=== PATIENT | female | born 1950 | race Caucasian/White ===

== ENCOUNTER → 2017-07-06 | Outpatient (CLI) | payer MEDICARE, BC ==
--- NOTE | 2017-07-06 15:57 | US ---
EXAMINATION TYPE: US carotid duplex BILAT DATE OF EXAM: 07/06/2017 COMPARISON: NONE CLINICAL HISTORY: Edema R60.9, R42 Dizziness. EXAM MEASUREMENTS: RIGHT: Peak Systolic Velocity (PSV) cm/sec ----- Right CCA: 47.6 ----- Right ICA: 84.5 ----- Right ECA: 47.5 ICA/CCA ratio: 1.8 RIGHT: End Diastole cm/sec ----- Right CCA: 15.6 ----- Right ICA: 26.3 ----- Right ECA: 4.6 LEFT: Peak Systolic Velocity (PSV) cm/sec ----- Left CCA: 87.5 ----- Left ICA: 99.5 ----- Left ECA: 149.6 ICA/CCA ratio: 1.1 LEFT: End Diastole cm/sec ----- Left CCA: 20.4 ----- Left ICA: 23.6 ----- Left ECA: 9.0 VERTEBRALS (direction of flow): Right Vertebral: Antegrade Left Vertebral: Antegrade Atherosclerotic changes at bilateral carotid bulbs. Elevated left ECA. IMPRESSION: 1. Atherosclerotic changes bilaterally with no significant hemodynamic stenosis.
--- NOTE | 2017-07-07 08:36 | ECHOF ---
Referral Reason:Edema R60.9, R42 Dizziness MEASUREMENTS -------- HEIGHT: 167.6 cm WEIGHT: 102.1 kg BP: 175/86 RVIDd: 3.6 cm (< 3.3) IVSd: 1.6 cm (0.6 - 1.1) LVIDd: 4.7 cm (3.9 - 5.3) LVPWd: 1.5 cm (0.6 - 1.1) IVSs: 2.1 cm LVIDs: 3.2 cm LVPWs: 1.7 cm LA Diam: 4.8 cm (2.7 - 3.8) LAESV Index (A-L): 46.96 ml/m Ao Diam: 3.1 cm (2.0 - 3.7) AV Cusp: 1.4 cm (1.5 - 2.6) MV EXCURSION: 18.438 mm (> 18.000) MV EF SLOPE: 45 mm/s (70 - 150) EPSS: 0.8 cm MV E Maynor: 1.38 m/s MV DecT: 323 ms MV A Maynor: 1.26 m/s MV E/A Ratio: 1.10 AV maxP.64 mmHg AV meanP.15 mmHg RAP: 5.00 mmHg RVSP: 21.28 mmHg FINDINGS -------- Sinus rhythm. This was a technically good study. The left ventricular size is normal. There is moderate concentric left ventricular hypertrophy. Overall left ventricular systolic function is normal with, an EF between 60 - 65 %. The right ventricle is mildly enlarged. LA is severely dilated >40 ml/m2 The right atrium is normal in size. Aortic valve is trileaflet and is moderately thickened. There is mild aortic stenosis present. Peak/mean gradient across the Aortic Valve is 22.64mmHg / 11.15mmHg. The mitral valve leaflets are mildly thickened. Moderate mitral annular calcification present. Mild mitral regurgitation is present. Mild tricuspid regurgitation present. Right ventricular systolic pressure is normal at < 35 mmHg. Trace/mild (physiologic) pulmonic regurgitation. The aortic root size is normal. There is no pericardial effusion. CONCLUSIONS -------- 1. Sinus rhythm. 2. There is mild aortic stenosis present. 3. Peak/mean gradient across the Aortic Valve is 22.64mmHg / 11.15mmHg. 4. The mitral valve leaflets are mildly thickened. 5. Moderate mitral annular calcification present. 6. Mild mitral regurgitation is present. 7. Mild tricuspid regurgitation present. 8. Right ventricular systolic pressure is normal at < 35 mmHg. 9. Trace/mild (physiologic) pulmonic regurgitation. 10. The aortic root size is normal. 11. There is no pericardial effusion. 12. This was a technically good study. 13. The left ventricular size is normal. 14. There is moderate concentric left ventricular hypertrophy. 15. Overall left ventricular systolic function is normal with, an EF between 60 - 65 %. 16. The right ventricle is mildly enlarged. 17. LA is severely dilated >40 ml/m2 18. The right atrium is normal in size. 19. Aortic valve is trileaflet and is moderately thickened. [employer] TECHNICIAN: Lucretia Fischer RDCS
== END | disposition home or self-care (01) ==
LOC: RADECHMAIN 14:36
PROVIDERS: ATTEND Family Medicine
DX: I65.23 Occlusion and stenosis of bilateral carotid arteries (principal); I08.3 Combined rheumatic disorders of mitral, aortic and tricuspid valves
CPT/HCPCS: 93306; 93880

== ENCOUNTER 2018-05-21 19:09 | Inpatient (IN) | payer MEDICARE, BC ==
[2018-05-21] MEDS ORDERED: NALOXONE 0.4 MG/ML 1 ML VIAL IV PRN (19:27)
[2018-05-21] MEDS ORDERED: ACETAMINOPHEN TAB 325 MG TAB PO PRN (19:27)
[2018-05-21 19:33] LABS: Glucose,Whole Blood 177 mg/dL (75-99)
--- NOTE | 2018-05-21 19:33 | ED ---
General Adult HPI - General Chief complaint: Urogenital Stated complaint: sepsis Time Seen by Provider: 05/21/18 19:21 Source: patient Mode of arrival: EMS Limitations: no limitations - History of Present Illness Initial comments: Jaqueline is a 67-year-old female with a history of diabetes who is her to our hospital from an outside facility for admission for sepsis secondary to urinary tract infection. reports that she's been having some generalized fatigue for a couple of days. Last night she began feeling very weak and noted that she felt like she was having a fever and sweats, she initially thought this may be to menopause however the weakness persisted throughout the day today so she decided come to the ER for evaluation. Per the outside record on evaluation patient was febrile with a temperature 100.7, hypotensive with a blood pressure of 86/42 and tachycardic. Sepsis workup was obtained. Outside labs revealed no leukocytosis however she did have acute kidney injury and a troponin of 0.62 with a normal CK-MB. Patient had no chest pain. She was noted to be thrombocytopenic with platelets of only 61 and decision was made to hold heparin and trend his troponins. Lactic acid was 2.0 area and the patient received a 30 mL/kg fluid bolus as well as a gram of Rocephin for urinary tract infection. Her blood pressure improved. Patient was offered a central line for central venous access and pressors however the patient declined. Upon arrival to our hospital the patient states that she is feeling better, she still feels febrile but her weakness is improving significantly after the fluids and antibiotics. At this time she would continue to refuse a central line stating she thinks she'll be good enough to go home tomorrow. - Related Data Allergies Allergy/AdvReac Type Severity Reaction Status Date / Time No Known Allergies Allergy Verified 05/21/18 19:22 Review of Systems ROS Statement: Those systems with pertinent positive or pertinent negative responses have been documented in the HPI. ROS Other: All systems not noted in ROS Statement are negative. Constitutional: Reports: fever, chills Eyes: Denies: vision change ENT: Denies: throat pain Respiratory: Denies: cough, dyspnea Cardiovascular: Denies: chest pain, palpitations Endocrine: Reports: fatigue Gastrointestinal: Reports: abdominal pain (Low pelvis pain). Denies: nausea Genitourinary: Reports: urgency, dysuria Musculoskeletal: Denies: back pain Skin: Denies: rash, lesions Neurological: Reports: weakness. Denies: headache Psychiatric: Denies: anxiety, depression Hematological/Lymphatic: Denies: easy bleeding, easy bruising Past Medical History Past Medical History: Diabetes Mellitus, Hypertension, Thyroid Disorder History of Any Multi-Drug Resistant Organisms: None Reported Past Surgical History: Cholecystectomy Additional Past Surgical History / Comment(s): Hernia surgery, bilat elbow surgery. Past Psychological History: Depression Smoking Status: Former smoker Past Alcohol Use History: None Reported Past Drug Use History: None Reported General Exam Limitations: no limitations General appearance: alert, in no apparent distress Head exam: Present: atraumatic, normocephalic Eye exam: Present: normal appearance ENT exam: Present: normal exam Neck exam: Present: normal inspection Respiratory exam: Present: normal lung sounds bilaterally. Absent: respiratory distress Cardiovascular Exam: Present: regular rate, normal rhythm, systolic murmur GI/Abdominal exam: Present: soft. Absent: distended Rectal exam: Present: deferred Extremities exam: Present: normal inspection, full ROM Neurological exam: Present: alert, oriented X3 Psychiatric exam: Present: normal affect, normal mood Skin exam: Present: warm (Hot to the touch), dry Course Vital Signs 05/21/18 19:16 Temperature 98.5 F Pulse Rate 85 Respiratory 15 Rate Blood Pressure 107/56 O2 Sat by Pulse 95 Oximetry Medical Decision Making - Medical Decision Making The patient was seen and evaluated, history was obtained from the outside facility as well as the patient Patient with a diagnosis of sepsis secondary to urinary tract infection Outside labs revealed a troponin of 0.62, as well as acute kidney injury with a baseline creatinine of 1.2 and a current creatinine of 1.9 on arrival at their facility Repeat labs were ordered upon arrival Patient was noted to be hypotensive at the outside facility, however her blood pressure is 107 systolic on arrival. She is not tachycardic, she is not tachypneic Patient care was discussed with Dr. figueroa who accepts the admission with consult to infectious disease and cardiology. Admission orders and consults were placed. - Lab Data Lab Results 05/21/18 Range/Units 19:29 POC Glucose (mg/dL) 177 H (75-99) mg/dL POC Glu Spot [employer] ID Lance Mayorga Disposition Clinical Impression: Urinary tract infection, Sepsis Disposition: ADMITTED IP TO THIS HOSP Condition: Good Referrals: German Villalobos DO [Primary Care Provider] - 1-2 days Decision Time: 19:36
[2018-05-21 19:35] LABS: HGB 10.8 gm/dL (11.4-16.0); RDW 14.5 % (11.5-15.5)
[2018-05-21 19:41] LABS: Calcium 7.5 mg/dL (8.4-10.2); Potassium 3.8 mmol/L (3.5-5.1)
[2018-05-21 19:42] LABS: HCT 33.7 % (34.0-46.0); MCH 29.3 pg (25.0-35.0); MCV 91.7 fL (80.0-100.0); Mean Platelet Volume 10.5; RBC 3.68 m/uL (3.80-5.40); WBC 5.6 k/uL (3.8-10.6)
[2018-05-21 19:46] LABS: INR 1.3 (<1.2); Partial Thromboplastin Time 25.3 sec (22.0-30.0)
[2018-05-21 20:09] LABS: Band Neutrophils % 34 %; Lymphocytes # (M) 0.28 k/uL (1.0-4.8); Metamyelocytes # (M) 0.11 k/uL (0); Metamyelocytes % 2 %; Monocytes # (M) 0.17 k/uL (0-1.0); Neutrophils % (M) 58 %; Nucleated Red Blood Cells 0 /100 WBC (0-0); Total Cells Counted 200
[2018-05-21 20:11] LABS: Platelet Count 48 k/uL (150-450)
[2018-05-21 20:56] LABS: Glucose,Whole Blood 240 mg/dL (75-99)
[2018-05-21] MEDS ORDERED: TEMAZEPAM 15 MG CAP PO PRN (21:29)
[2018-05-21] MEDS ORDERED: HYDROcodone/APAP 5-325MG 1 EACH TAB PO PRN (21:29)
[2018-05-21] MEDS ORDERED: ALPRAZolam 0.25 MG TAB PO PRN (21:29)
[2018-05-21 22:07] VITALS: BMI 35.6
[2018-05-21] MEDS: SODIUM CHLORIDE 0.9% 1,000 ML IV SCH (22:16)
[2018-05-21] MEDS: cefTRIAXone IN SWFI 1,000 MG/10 ML SYRINGE IVP SCH (22:16)
--- NOTE | 2018-05-21 22:28 | HP ---
HISTORY AND PHYSICAL CHIEF COMPLAINT: Weakness and sepsis. HISTORY OF PRESENT ILLNESS: This 67-year-old woman with a past history of diabetes, hypertension, hypothyroidism, cholecystectomy, being followed Dr. German Corona in the outpatient setting, has not been feeling well over the past couple days. The patient apparently was having weakness. The patient was having some fevers, sweats, and shaking chills. Patient was taken to [facility] and subsequently referred to [facility]. Patient had features of UTI with sepsis also. The patient admitted for further evaluation and treatment. There is no history any headache, loss of consciousness, chest pain, palpitations. Troponin elevated to 0.995. PAST MEDICAL HISTORY: History of diabetes, hypertension, hypothyroidism, cholecystectomy. MEDICATIONS: Prior to admission, Lantus 20 units subcu at bedtime and 10 units subcu breakfast. ALLERGIES: None. FAMILY HISTORY: No history of heart disease or strokes in the family. SOCIAL HISTORY: No smoking no alcohol intake. Previous smoker. REVIEW OF SYSTEMS: ENT: No diminished hearing or vision. CARDIOVASCULAR: No angina or palpitations. GI: As mentioned earlier. : As mentioned. ALLERGY/IMMUNOLOGY: No asthma or hayfever. MUSCULOSKELETAL: As mentioned earlier. HEMATOLOGY/ONCOLOGY: No anemia. ENDOCRINE: As mentioned earlier. CONSTITUTIONAL: As mentioned earlier. PSYCHIATRY: As mentioned earlier. PHYSICAL EXAMINATION: Alert, oriented x3. Pulse 78, blood pressure 109/56, respirations 19, temperature 98.4, pulse ox 94% on 2 L. HEENT: Conjunctivae normal. Oral mucosa moist. NECK: No jugular venous distention. No lymph nodes palpable. CARDIOVASCULAR: S1 and S2. No S3 or S4. RESPIRATORY: Breath sounds diminished in the bases. A few scattered rhonchi. No crackles. ABDOMEN: Soft. Abdominal wall ventral hernia present, otherwise no mass palpable. No tenderness. EXTREMITIES: Legs no edema, no swelling. NERVOUS SYSTEM: Higher functions as mentioned. Mild diffuse tremors present, prominent on the right lower leg. No focal weakness. LYMPHATICS: No lymph nodes palpable in the neck or axillae. SKIN: No lesions. JOINTS: No active deforming arthropathy. LAB STUDIES: WBC 5, hemoglobin 10.2, platelets of 48. INR is 1.3. Creatinine is 1.69. Troponin 0.9. ASSESSMENT: 1. Acute urinary tract infection with sepsis. 2. Troponin 0.99, for possible acute non ST-segment elevation myocardial infarction. 3. Increased creatinine, possible acute renal failure, possibly prerenal. 4. Thrombocytopenia. 5. Diffuse tremors. 6. Ventral hernia. 7. Diabetes type 2. 8. Hypertension. 9. Hypothyroidism. 10.History of cholecystectomy. 11.Remote history of nicotine dependence. 12.Depression. RECOMMENDATIONS: In this 67-year-old woman who presented with multiple complex medical issues, will monitor the patient closely, continue the current management and symptomatic treatment. We will initiate Rocephin. Cultures. Otherwise, infectious Disease and cardiology have been consulted. Prognosis guarded because of multiple complex medical issues. We will resume the home medications and further recommendations to follow. Monitor blood sugars. See orders for further details. MMODL / IJN: [id number] /
[2018-05-22 06:18] LABS: Glucose,Whole Blood 297 mg/dL (75-99)
[2018-05-22 06:48] LABS: Basophils % (A) 0 %; Eosinophils % (A) 0 %; HCT 35.9 % (34.0-46.0); HGB 11.4 gm/dL (11.4-16.0); Lymphocytes # (A) 0.2 k/uL (1.0-4.8); Lymphocytes % (A) 4 %; MCH 29.8 pg (25.0-35.0); MCHC 31.8 g/dL (31.0-37.0); MCV 93.7 fL (80.0-100.0); Mean Platelet Volume 9.6; Monocytes # (A) 0.2 k/uL (0-1.0); Monocytes % (A) 4 %; Neutrophils # (A) 5.6 k/uL (1.3-7.7); Neutrophils % (A) 92 %; RBC 3.83 m/uL (3.80-5.40); RDW 14.5 % (11.5-15.5); WBC 6.1 k/uL (3.8-10.6)
[2018-05-22 06:54] LABS: Platelet Count 41 k/uL (150-450)
[2018-05-22 07:04] LABS: Calcium 7.8 mg/dL (8.4-10.2); Potassium 4.7 mmol/L (3.5-5.1)
[2018-05-22] MEDS: PANTOPRAZOLE 40 MG TABLET PO SCH (07:16)
[2018-05-22] MEDS: INSULIN ASPART 100 UNIT/ML 1 ML 10 ML VIAL SQ SCH ×4 (07:16→21:34)
[2018-05-22] MEDS ORDERED: INSULIN GLARGINE 20 UNIT SQ SCH (07:30)
[2018-05-22] MEDS: SODIUM CHLORIDE 0.9% 1,000 ML IV SCH (08:01)
[2018-05-22] MEDS: MULTIVITAMINS, THERA 1 EACH TAB PO SCH (08:02)
[2018-05-22 08:09] VITALS: RESP 18
[2018-05-22] MEDS ORDERED: HEPARIN SODIUM,PORCINE 5,000 UNIT/ML 1 ML VIAL SQ SCH (09:00)
[2018-05-22 09:18] LABS: Appearance,Urine Clear (Clear); Bacteria,Urine Rare /hpf; Bilirubin,Urine Negative (Negative); Blood,Urine Moderate (Negative); Color,Urine Light Yellow; Glucose,Urine (UA) 2+ (Negative); Ketones,Urine Negative (Negative); Leukocyte Esterase,Urine Large (Negative); Nitrite,Urine Negative (Negative); Protein,Urine Trace (Negative); RBC,Urine 30 /hpf (0-5); Specific Gravity,Urine 1.008 (1.001-1.035); Squamous Epithelial Cell,Urine <1 /hpf (0-4); Urobilinogen,Urine <2.0 mg/dL (<2.0); WBC,Urine 46 /hpf (0-5)
[2018-05-22] MEDS: INSULIN DETEMIR 100 UNIT/ML 10 ML VIAL SQ SCH ×2 (09:22→21:33)
[2018-05-22 11:51] LABS: Glucose,Whole Blood 105 mg/dL (75-99)
[2018-05-22 12:09] LABS: Hemoglobin A1C 6.9 % (4.0-6.0)
--- NOTE | 2018-05-22 12:37 | P.CRDCN ---
History of Present Illness Consult date: 05/22/18 Requesting physician: Jeancarlos E Sheet Reason for Consult (text): Abnormal troponin Chief complaint: Weakness, chills History of present illness: This is a pleasant 59-year-old female with known history of diabetes, hypertension, hyperlipidemia, who follows with Dr. Lilly Ramirez in the office. She presented to [facility] with symptoms of extreme weakness with associated chills and cold sweats. To the patient, a couple days prior she states that she had been incontinent, while driving her vehicle, was driving for quite some time before she was able to go home and shower. She denies any dysuria or frequency. She also denies having any symptoms of any chest discomfort or difficulty in breathing. She states she has been under a considerable amount of stress and she had to put her dog down the end of March. Prior to coming to the hospital, patient states that she was extremely weak, she did attempt to get up out of a chair and fell. On presentation to [facility], patient was noted to have a temperature of 100.7, blood pressure 89/29 on admission. White blood cell count 5.0, hemoglobin 11.9, platelet count 61 INR 1.3, positive UTI. BUN 59, creatinine 1.9, sodium 137, potassium 3.9, magnesium 1.6, troponin 0.62, CK 496, MB 4.8, BNP level 5384. Lactic acid 2.0. Chest x-ray was performed which revealed mild congestion with no overt congestive heart failure. Because of the abnormal troponin patient was transferred to [facility]. She did have an echocardiogram with Doppler study performed in July of last year which revealed a normal left ventricular systolic function, LAD was severely dilated at that time. Blood Pressure on arrival here 108/56, heart rate in the 80s, temperature 98.5, 95% on 2 L oxygen. EKG on arrival here showed a normal sinus rhythm with nonspecific ST-T wave changes noted in the inferior leads. I do not have an EKG from [facility]. Laboratory data was reviewed here, white blood cell count 5.6, hemoglobin 10.8, platelet count 48 yesterday, 41 this morning. BUN 55, creatinine 1.4, yesterday's creatinine 1.6 BNP level 6870. Troponin on admission here 0.9 and 0.5. At the time of my examination this morning. Patient did have a Lexiscan stress test performed in August which was negative for any reversible ischemia. Past Medical History Past Medical History: Diabetes Mellitus, Hypertension, Thyroid Disorder Additional Past Medical History / Comment(s): restless leg syndrome. History of Any Multi-Drug Resistant Organisms: None Reported Past Surgical History: Cholecystectomy Additional Past Surgical History / Comment(s): Hernia surgery, bilat elbow surgery. Past Anesthesia/Blood Transfusion Reactions: No Reported Reaction Past Psychological History: No Psychological Hx Reported, Depression Smoking Status: Former smoker Past Alcohol Use History: None Reported Additional Past Alcohol Use History / Comment(s): pt stated she quite approx 20 years. Past Drug Use History: None Reported - Past Family History Mother Family Medical History: Diabetes Mellitus Father Family Medical History: Coronary Artery Disease (CAD), Myocardial Infarction (NH ) Medications and Allergies Home Medications Medication Instructions Recorded Confirmed Type Donepezil [Aricept] 10 mg PO DAILY 05/22/18 05/22/18 History Fluvastatin Sodium [Fluvastatin ER] 80 mg PO DAILY 05/22/18 05/22/18 History Furosemide [Lasix] 20 mg PO DAILY 05/22/18 05/22/18 History Insulin Aspart Protam & Aspart 20 unit SQ BID 05/22/18 05/22/18 History [NovoLOG MIX 70-30 Flexpen] Levothyroxine Sodium [Synthroid] 150 mcg PO DAILY 05/22/18 05/22/18 History Losartan/Hydrochlorothiazide 1 tab PO DAILY 05/22/18 05/22/18 History [Losartan-Hctz 100-25 mg Tab] Meloxicam [Mobic] 7.5 mg PO DAILY 05/22/18 05/22/18 History Pregabalin [Lyrica] 200 mg PO BID 05/22/18 05/22/18 History Sertraline [Zoloft] 100 mg PO BID 05/22/18 05/22/18 History glipiZIDE [Glucotrol] 10 mg PO AC-BRKFST 05/22/18 05/22/18 History Allergies Allergy/AdvReac Type Severity Reaction Status Date / Time No Known Allergies Allergy Verified 05/22/18 09:34 Physical Exam Vitals: Vital Signs Temp Pulse Pulse Resp BP BP Pulse Ox 05/22/18 11:00 96.7 F L 59 L 18 156/72 97 05/22/18 08:02 96.8 F L 74 18 128/56 98 05/22/18 04:00 97.1 F L 63 15 139/70 96 05/22/18 00:00 97.5 F L 76 17 129/65 96 05/21/18 20:18 78 19 109/57 95 05/21/18 20:14 97.5 F L 75 16 132/67 98 05/21/18 19:45 81 15 104/58 95 05/21/18 19:16 98.5 F 85 15 107/56 95 Intake and Output 05/21/18 05/22/18 05/22/18 22:59 06:59 14:59 Intake Total 75 20 300 Output Total 300 560 Balance -225 20 -260 Intake: IV 20 Invasive Line 2 20 Intake, IV Titration 75 Amount Sodium Chloride 0.9% 1, 75 000 ml @ 75 mls/hr IV . [id number] JEANA Rx#:[id number] Oral 300 Output: Urine 300 560 Other: Voiding Method Toilet Toilet Toilet # Voids 1 1 Weight 100 kg 106 kg PHYSICAL EXAMINATION: GENERAL: 67-year-old female in no acute distress at time of my examination HEENT: Head is atraumatic, normocephalic. Pupils equal, round. Sclera anicteric. Conjunctiva are clear. Mucous membranes of the mouth are moist. Neck is supple. There is no elevated jugular venous pressure.] bruit is heard. HEART EXAMINATION: Heart S1 S2 systolic murmur is heard CHEST EXAMINATION: Lungs are clear to auscultation and precussion. No chest wall tenderness is noted on palpation or with deep breathing. ABDOMEN: Soft, nontender. Bowel sounds are heard. No organomegaly noted. EXTREMITIES: 2+ peripheral pulses with no evidence of peripheral edema and no calf tenderness noted. NEUROLOGIC patient is awake, alert and oriented ?-3. . Results 05/22/18 05:55 05/22/18 05:55 Cardiac Enzymes 05/21/18 05/22/18 Range/Units 19:23 01:53 Troponin I 0.995 H* 0.502 H* (0.000-0.034) ng/mL Coagulation 05/21/18 Range/Units 19:23 PT 12.0 (9.0-12.0) sec APTT 25.3 (22.0-30.0) sec CBC 05/21/18 05/22/18 Range/Units 19:23 05:55 WBC 5.6 6.1 (3.8-10.6) k/uL RBC 3.68 L 3.83 (3.80-5.40) m/uL Hgb 10.8 L 11.4 (11.4-16.0) gm/dL Hct 33.7 L 35.9 (34.0-46.0) % Plt Count 48 L* 41 L* (150-450) k/uL Comprehensive Metabolic Panel 05/21/18 05/22/18 Range/Units 19:23 05:55 Sodium 138 138 (137-145) mmol/L Potassium 3.8 4.7 (3.5-5.1) mmol/L Chloride 107 103 (98-107) mmol/L Carbon Dioxide 21 L 23 (22-30) mmol/L BUN 57 H 55 H (7-17) mg/dL Creatinine 1.69 H 1.40 H (0.52-1.04) mg/dL Glucose 177 H 282 H (74-99) mg/dL Calcium 7.5 L 7.8 L (8.4-10.2) mg/dL Current Medications Generic Name Dose Route Start Last Admin Trade Name Freq PRN Reason Stop Dose Admin Acetaminophen 650 mg 05/21/18 19:27 Tylenol Tab PO Q6HR PRN Mild Pain or Fever > 100.5 Hydrocodone Bitart/Acetaminophen 1 each 05/21/18 21:29 Chamisal 5-325 PO Q6HR PRN Pain Alprazolam 0.25 mg 05/21/18 21:29 Xanax PO TID PRN Anxiety Ceftriaxone Sodium 1,000 mg 05/21/18 22:00 05/21/18 22:16 Rocephin IVP 1,000 mg Q24H JEANA Administration Heparin Sodium (Porcine) 5,000 unit 05/22/18 09:00 05/22/18 08:02 Heparin SQ 5,000 unit Q12HR JEANA Administration Insulin Aspart 0 unit 05/22/18 07:30 05/22/18 11:53 Novolog SQ Not Given ACHS [facility] Protocol Insulin Detemir 20 unit 05/22/18 07:30 05/22/18 09:22 Levemir SQ 20 unit 0730,2100 JEANA Administration Multivitamins 1 each 05/22/18 12:00 05/22/18 08:02 Theragran PO 1 each DAILY@1200 JEANA Administration Naloxone HCl 0.2 mg 05/21/18 19:27 Narcan IV Q2M PRN Opioid Reversal Pantoprazole Sodium 40 mg 05/22/18 07:30 05/22/18 07:16 Protonix PO 40 mg AC-BRKFST JEANA Administration Temazepam 15 mg 05/21/18 21:29 Restoril PO HS PRN Insomnia Intake and Output 05/21/18 05/22/18 05/22/18 22:59 06:59 14:59 Intake Total 75 20 300 Output Total 300 560 Balance -225 20 -260 Intake: IV 20 Invasive Line 2 20 Intake, IV Titration 75 Amount Sodium Chloride 0.9% 1, 75 000 ml @ 75 mls/hr IV . [id number] [facility] Rx#:[id number] Oral 300 Output: Urine 300 560 Other: Voiding Method Toilet Toilet Toilet # Voids 1 1 Weight 100 kg 106 kg 05/22/18 05:55 05/22/18 05:55 EKG Interpretations (text) EKG shows normal sinus rhythm with nonspecific ST-T wave changes in the inferior leads Assessment and Plan Plan: Assessment and plan #1 weakness with of acute UTI and sepsis #2 abnormal troponin, 0.6 at [facility], 0.9 and 0.5 here. EKG shows normal sinus rhythm with nonspecific ST-T wave changes noted in the inferior leads #3 hypertension #4 diabetes #5 hyperlipidemia #6 abnormal renal function, creatinine 16 yesterday 1.4 today. #7 thrombocytopenia, platelet count 41 this morning #8 anemia Plan We will obtain an echocardiogram with Doppler study. Discontinue subcu heparin. Patient is not currently on an aspirin because of thrombocytopenia. Continue statin along with her beta doyle. In consultation with hematology for the thrombocytopenia. Once the patient's sepsis clears she will need further evaluation cardiac-garcia to rule out underlying obstructive coronary artery disease. Further recommendations to follow. DNP note has been reviewed, I agree with a documented findings and plan of care. Patient was seen and examined.
[2018-05-22] MEDS: METOPROLOL TARTRATE 25 MG TAB PO SCH ×2 (13:23→21:26)
[2018-05-22] MEDS: ATORVASTATIN 40 MG TAB PO SCH (13:23)
--- NOTE | 2018-05-22 13:42 | P.CONS ---
History of Present Illness - Reason for Consult Consult date: 05/22/18 Sepsis, UTI, diabetes - History of Present Illness This is a 67-year-old female patient with significant past history of diabetes mellitus insulin requiring. The patient states that on the weekend, she developed weakness along with shakiness and cold chills and rigors. She denies having any dysuria but states that her urine smelled strong and she had very little output. She states she was trying to hold her urine as she did not want to get up to the bathroom due to pain which is chronic in her right leg, and back. She also has chronic pain to the right arm after a fall year ago. Patient denies having frequent urinary tract infections in the past. She relates that she is an emotional eater and over 8 of a large amount and then had diarrhea while she was driving her car and had to complete driving 10 miles home while she was sitting and diarrhea. She denies any previous problems with her kidney function. Patient states that she has had several falls over the weekend one time she fell off the toilet and another time she fell on the floor when her neighbor came to the home around 2:30 in the afternoon. She apparently had some confusion also. Patient was taken by ambulance to [facility] where she was found to have a lactic acid of 2, temperature 100.7, with hypotension and tachycardia. BUN was 59 creatinine 1.92. ProBNP 5384. Urinalysis was cloudy, leukoesterase moderate, nitrates positive, RBCs 51 -100, bacteria many. Her blood sugar was also noted to be 45, total bilirubin 0.9, alkaline phosphatase 95, AST 46 and ALT 22. Chest x-ray showed mild congestive but no heart failure. Patient was given IV fluid bolus, Rocephin and transferred to [facility] emergency center where she was eventually transferred to selective care unit. She was also noted to have thrombocytopenia, elevated troponins for which cardiology is following. Her white count is at 5.6 she has been afebrile since admission. Blood cultures status received an urine culture was obtained this morning. She has received several doses of Rocephin. Patient states that she is feeling much better at this time. She denies having any nausea or vomiting. She has had no further diarrhea since her episode in the car and her last bowel movement was couple days ago. She does state she has some shortness of breath at home over the weekend but denies any at this time. She denies having any chest pain. Regarding her diabetes, she states her last hemoglobin A1c was either 5.5 or 6.5. She only checks her sugar occasionally at home but lately it has been running 74-109 Patient relates that she had to put her dog to sleep 2 weeks ago. She also becomes tearful and discusses that her son 5 years ago suicide after previous closed head injury and she also lost her 6 months later. Review of Systems All systems: negative Constitutional: Reports chills, Reports fatigue, Reports fever, Reports lethargy , Reports malaise, Reports poor appetite, Reports weakness Eyes: denies blurred vision, denies pain Ears, nose, mouth and throat: Denies dental pain, Denies headache, Denies mouth pain, Denies sore throat Cardiovascular: Reports shortness of breath, Denies chest pain, Denies edema, Denies leg edema Respiratory: Denies cough, Denies cough with sputum, Denies dyspnea, Denies excessive sputum, Denies hemoptysis, Denies home oxygen, Denies wheezing Gastrointestinal: Reports diarrhea, Denies abdominal pain, Denies nausea, Denies vomiting Genitourinary: Denies dysuria, Denies hematuria, Denies urgency, Denies urinary frequency Musculoskeletal: Denies myalgias Integumentary: Denies pruritus, Denies rash, Denies wounds Neurological: Reports change in mentation, Denies numbness, Denies weakness Psychiatric: Denies anxiety, Denies depression Endocrine: Denies fatigue, Denies weight change Past Medical History Past Medical History: Diabetes Mellitus, Hypertension, Thyroid Disorder Additional Past Medical History / Comment(s): restless leg syndrome, chronic back pain, diabetic neuropathy. History of Any Multi-Drug Resistant Organisms: None Reported Past Surgical History: Cholecystectomy Additional Past Surgical History / Comment(s): Hernia surgery, bilat elbow surgery foot surgery for plantar fasciitis, bilateral cataract removal and intraocular lens implants. Past Anesthesia/Blood Transfusion Reactions: No Reported Reaction Past Psychological History: No Psychological Hx Reported, Depression Smoking Status: Former smoker Past Alcohol Use History: None Reported Additional Past Alcohol Use History / Comment(s): Patient was a smoker of 2 packs per day for a proximal March 22 years and quit 20 years ago. She denies any marijuana, street drug or alcohol use. She currently lives alone. She is and lost her to cancer 5 years ago and also her son committed suicide by hanging 5 years ago. Past Drug Use History: None Reported - Past Family History Mother Family Medical History: Diabetes Mellitus Father Family Medical History: Coronary Artery Disease (CAD), Myocardial Infarction ([place] ) Medications and Allergies Home Medications Medication Instructions Recorded Confirmed Type Donepezil [Aricept] 10 mg PO DAILY 05/22/18 05/22/18 History Fluvastatin Sodium [Fluvastatin ER] 80 mg PO DAILY 05/22/18 05/22/18 History Furosemide [Lasix] 20 mg PO DAILY 05/22/18 05/22/18 History Insulin Aspart Protam & Aspart 20 unit SQ BID 05/22/18 05/22/18 History [NovoLOG MIX 70-30 Flexpen] Levothyroxine Sodium [Synthroid] 150 mcg PO DAILY 05/22/18 05/22/18 History Losartan/Hydrochlorothiazide 1 tab PO DAILY 05/22/18 05/22/18 History [Losartan-Hctz 100-25 mg Tab] Meloxicam [Mobic] 7.5 mg PO DAILY 05/22/18 05/22/18 History Pregabalin [Lyrica] 200 mg PO BID 05/22/18 05/22/18 History Sertraline [Zoloft] 100 mg PO BID 05/22/18 05/22/18 History glipiZIDE [Glucotrol] 10 mg PO AC-BRKFST 05/22/18 05/22/18 History Allergies Allergy/AdvReac Type Severity Reaction Status Date / Time No Known Allergies Allergy Verified 05/22/18 09:34 Physical Exam Vitals: Vital Signs Temp Pulse Pulse Resp BP BP Pulse Ox 05/22/18 11:00 96.7 F L 59 L 18 156/72 97 05/22/18 08:02 96.8 F L 74 18 128/56 98 05/22/18 04:00 97.1 F L 63 15 139/70 96 05/22/18 00:00 97.5 F L 76 17 129/65 96 05/21/18 20:18 78 19 109/57 95 05/21/18 20:14 97.5 F L 75 16 132/67 98 05/21/18 19:45 81 15 104/58 95 05/21/18 19:16 98.5 F 85 15 107/56 95 Intake and Output 05/21/18 05/22/18 05/22/18 22:59 06:59 14:59 Intake Total 75 20 300 Output Total 300 560 Balance -225 20 -260 Intake: IV 20 Invasive Line 2 20 Intake, IV Titration 75 Amount Sodium Chloride 0.9% 1, 75 000 ml @ 75 mls/hr IV . [id number] [facility] Rx#:[id number] Oral 300 Output: Urine 300 560 Other: Voiding Method Toilet Toilet Toilet # Voids 1 1 Weight 100 kg 106 kg Gen: This is a 67-year-old female. She is sitting on the edge of the bed and appears to be comfortable and in no acute distress. Patient does become tearful when she is talking about the loss of her son, and dog. HEENT: Head is atraumatic, normocephalic. Pupils equal, round. Sclerae is anicteric. Conjunctiva pink. Mucous members of the mouth are dry. NECK: Supple. No JVD. No lymphadenopathy. No thyromegaly. LUNGS: Clear to auscultation. No wheezes or rhonchi. No intercostal retractions. HEART: Regular rate and rhythm. Systolic murmur. ABDOMEN: Soft. Bowel sounds are present. No masses. No tenderness. No CVA tenderness bilaterally. EXTREMITIES: No pedal edema. No calf tenderness. Dorsalis pedis is +2 bilaterally. NEUROLOGICAL: Patient is awake, alert and oriented x3. Cranial nerves 2 through 12 are grossly intact. Results Results: Laboratory Results WBC 6.1 k/uL (3.8-10.6) 05/22/18 05:55 RBC 3.83 m/uL (3.80-5.40) 05/22/18 05:55 Hgb 11.4 gm/dL (11.4-16.0) 05/22/18 05:55 Hct 35.9 % (34.0-46.0) 05/22/18 05:55 MCV 93.7 fL (80.0-100.0) 05/22/18 05:55 MCH 29.8 pg (25.0-35.0) 05/22/18 05:55 MCHC 31.8 g/dL (31.0-37.0) 05/22/18 05:55 RDW 14.5 % (11.5-15.5) 05/22/18 05:55 Plt Count 41 k/uL (150-450) L* 05/22/18 05:55 Neutrophils % 92 % 05/22/18 05:55 Neutrophils % (Manual) 58 % 05/21/18 19:23 Band Neutrophils % 34 % 05/21/18 19:23 Lymphocytes % 4 % 05/22/18 05:55 Lymphocytes % (Manual) 5 % 05/21/18 19:23 Monocytes % 4 % 05/22/18 05:55 Monocytes % (Manual) 3 % 05/21/18 19:23 Eosinophils % 0 % 05/22/18 05:55 Basophils % 0 % 05/22/18 05:55 Metamyelocytes % 2 % 05/21/18 19:23 Neutrophils # 5.6 k/uL (1.3-7.7) 05/22/18 05:55 Neutrophils # (Manual) 5.10 k/uL (1.3-7.7) 05/21/18 19:23 Lymphocytes # 0.2 k/uL (1.0-4.8) L 05/22/18 05:55 Lymphocytes # (Manual) 0.28 k/uL (1.0-4.8) L 05/21/18 19:23 Monocytes # 0.2 k/uL (0-1.0) 05/22/18 05:55 Monocytes # (Manual) 0.17 k/uL (0-1.0) 05/21/18 19:23 Eosinophils # 0.0 k/uL (0-0.7) 05/22/18 05:55 Basophils # 0.0 k/uL (0-0.2) 05/22/18 05:55 Metamyelocytes # (Man) 0.11 k/uL (0) H 05/21/18 19: Nucleated RBCs 0 /100 WBC (0-0) 05/21/18 19:23 Manual Slide Review Performed 05/21/18 19:23 RBC Morphology Normal 05/21/18 19:23 PT 12.0 sec (9.0-12.0) 05/21/18 19:23 INR 1.3 (<1.2) H 05/21/18 19:23 APTT 25.3 sec (22.0-30.0) 05/21/18 19:23 Sodium 138 mmol/L (137-145) 05/22/18 05:55 Potassium 4.7 mmol/L (3.5-5.1) 05/22/18 05:55 Chloride 103 mmol/L (98-107) 05/22/18 05:55 Carbon Dioxide 23 mmol/L (22-30) 05/22/18 05:55 Anion Gap 12 mmol/L 05/22/18 05:55 BUN 55 mg/dL (7-17) H 05/22/18 05:55 Creatinine 1.40 mg/dL (0.52-1.04) H 05/22/18 05:55 Est GFR (CKD-EPI)AfAm 45 (>60 ml/min/1.73 sqM) 05/22/18 05:55 Est GFR (CKD-EPI)NonAf 39 (>60 ml/min/1.73 sqM) 05/22/18 05:55 Glucose 282 mg/dL (74-99) H 05/22/18 05:55 POC Glucose (mg/dL) 105 mg/dL (75-99) H 05/22/18 11:49 POC Glu Snuff Blender ID Hafsa Fontanez 05/22/18 11:[address] Glu mg/dL 151 05/21/18 19:23 Hemoglobin A1c 6.9 % (4.0-6.0) H 05/21/18 19:23 Calcium 7.8 mg/dL (8.4-10.2) L 05/22/18 05:55 Troponin I 0.502 ng/mL (0.000-0.034) H* 05/22/18 01:53 NT-Pro-B Natriuret Pep 6870 pg/mL 05/21/18 19:23 Urine Color Light Yellow 05/22/18 08:45 Urine Appearance Clear (Clear) 05/22/18 08:45 Urine pH 5.0 (5.0-8.0) 05/22/18 08:45 Ur Specific [place] 1.008 (1.001-1.035) 05/22/18 08:45 Urine Protein Trace (Negative) H 05/22/18 08:45 Urine Glucose (UA) 2+ (Negative) H 05/22/18 08:45 Urine Ketones Negative (Negative) 05/22/18 08:45 Urine Blood Moderate (Negative) H 05/22/18 08:45 Urine Nitrite Negative (Negative) 05/22/18 08:45 Urine Bilirubin Negative (Negative) 05/22/18 08:45 Urine Urobilinogen <2.0 mg/dL (<2.0) 05/22/18 08:45 Ur Leukocyte Esterase Large (Negative) H 05/22/18 08:45 Urine RBC 30 /hpf (0-5) H 05/22/18 08:45 Urine WBC 46 /hpf (0-5) H 05/22/18 08:45 Ur Squamous Epith Cells <1 /hpf (0-4) 05/22/18 08:45 Urine Bacteria Rare /hpf (None) H 05/22/18 08:45 CBC & Chem 7: 05/22/18 05:55 05/22/18 05:55 Labs: Abnormal Lab Results - Last 24 Hours (Table) 05/21/18 05/21/18 05/21/18 Range/Units 19:23 19:23 19:23 RBC (3.80-5.40) m/uL Hgb (11.4-16.0) gm/dL Hct (34.0-46.0) % Plt Count (150-450) k/uL Lymphocytes # (1.0-4.8) k/uL Lymphocytes # (Manual) (1.0-4.8) k/uL Metamyelocytes # (Man) (0) k/uL INR 1.3 H (<1.2) Carbon Dioxide 21 L (22-30) mmol/L BUN 57 H (7-17) mg/dL Creatinine 1.69 H (0.52-1.04) mg/dL Glucose 177 H (74-99) mg/dL POC Glucose (mg/dL) (75-99) mg/dL Calcium 7.5 L (8.4-10.2) mg/dL Troponin I 0.995 H* (0.000-0.034) ng/mL Urine Protein (Negative) Urine Glucose (UA) (Negative) Urine Blood (Negative) Ur Leukocyte Esterase (Negative) Urine RBC (0-5) /hpf Urine WBC (0-5) /hpf Urine Bacteria (None) /hpf 05/21/18 05/21/18 05/21/18 Range/Units 19:23 19:29 20:49 RBC 3.68 L (3.80-5.40) m/uL Hgb 10.8 L (11.4-16.0) gm/dL Hct 33.7 L (34.0-46.0) % Plt Count 48 L* (150-450) k/uL Lymphocytes # (1.0-4.8) k/uL Lymphocytes # (Manual) 0.28 L (1.0-4.8) k/uL Metamyelocytes # (Man) 0.11 H (0) k/uL INR (<1.2) Carbon Dioxide (22-30) mmol/L BUN (7-17) mg/dL Creatinine (0.52-1.04) mg/dL Glucose (74-99) mg/dL POC Glucose (mg/dL) 177 H 240 H (75-99) mg/dL Calcium (8.4-10.2) mg/dL Troponin I (0.000-0.034) ng/mL Urine Protein (Negative) Urine Glucose (UA) (Negative) Urine Blood (Negative) Ur Leukocyte Esterase (Negative) Urine RBC (0-5) /hpf Urine WBC (0-5) /hpf Urine Bacteria (None) /hpf 05/22/18 05/22/18 05/22/18 Range/Units 01:53 05:55 05:55 RBC (3.80-5.40) m/uL Hgb (11.4-16.0) gm/dL Hct (34.0-46.0) % Plt Count 41 L* (150-450) k/uL Lymphocytes # 0.2 L (1.0-4.8) k/uL Lymphocytes # (Manual) (1.0-4.8) k/uL Metamyelocytes # (Man) (0) k/uL INR (<1.2) Carbon Dioxide (22-30) mmol/L BUN 55 H (7-17) mg/dL Creatinine 1.40 H (0.52-1.04) mg/dL Glucose 282 H (74-99) mg/dL POC Glucose (mg/dL) (75-99) mg/dL Calcium 7.8 L (8.4-10.2) mg/dL Troponin I 0.502 H* (0.000-0.034) ng/mL Urine Protein (Negative) Urine Glucose (UA) (Negative) Urine Blood (Negative) Ur Leukocyte Esterase (Negative) Urine RBC (0-5) /hpf Urine WBC (0-5) /hpf Urine Bacteria (None) /hpf 05/22/18 05/22/18 05/22/18 Range/Units 06:06 08:45 11:49 RBC (3.80-5.40) m/uL Hgb (11.4-16.0) gm/dL Hct (34.0-46.0) % Plt Count (150-450) k/uL Lymphocytes # (1.0-4.8) k/uL Lymphocytes # (Manual) (1.0-4.8) k/uL Metamyelocytes # (Man) (0) k/uL INR (<1.2) Carbon Dioxide (22-30) mmol/L BUN (7-17) mg/dL Creatinine (0.52-1.04) mg/dL Glucose (74-99) mg/dL POC Glucose (mg/dL) 297 H 105 H (75-99) mg/dL Calcium (8.4-10.2) mg/dL Troponin I (0.000-0.034) ng/mL Urine Protein Trace H (Negative) Urine Glucose (UA) 2+ H (Negative) Urine Blood Moderate H (Negative) Ur Leukocyte Esterase Large H (Negative) Urine RBC 30 H (0-5) /hpf Urine WBC 46 H (0-5) /hpf Urine Bacteria Rare H (None) /hpf Assessment and Plan Plan: This is a 67-year-old female patient who presented with metabolic encephalopathy, sepsis with septic shock secondary to urinary tract infection. She has received several doses of Rocephin and status post IV fluid resuscitation. Patient also presented with thrombocytopenia possibly secondary to sepsis, acute kidney injury with baseline creatinine of 1.2. Troponins have been elevated for which cardiology is following. Blood cultures status received and urine culture and urine specimen was obtained this morning. Continue supportive care. Further recommendations as patient progresses. The above dictated assessment and findings were discussed with Dr. Pan. The impression and plan of care have been directed as dictated. Lisa Vazquez nurse practitioner acting as scribe for Dr. Pan.
--- NOTE | 2018-05-22 15:56 | PN ---
PROGRESS NOTE DATE OF SERVICE: 05/22/2018. INTERVAL HISTORY: This 67-year-old woman was admitted with UTIs, also had elevated troponin. The cardiology is following the patient closely. Cardiology has seen the patient and recommend Hematology/Oncology consultation for thrombocytopenia as well. Medical treatment is being continued at this time. The patient has also seen Infectious Disease and recommended continue the IV antibiotics. No chest pain. No palpitations. No fever. PHYSICAL EXAM: Alert and oriented x3. Pulse 59, blood pressure 130/72, respiration 18, temperature 97.1, pulse ox 97% room air. Conjunctivae normal. Oral mucosa moist. Neck is no jugular venous distention. No carotid bruit. No lymph node enlargement. Cardiovascular systems: S1, S2. Respiration: Breath sounds diminished in the bases. No rhonchi and no crackles. ABDOMEN: Soft, nontender. Legs are no edema, no swelling. LABS: WBC 6.9, hemoglobin 11.4, platelets are 41. Creatinine 1.40. Troponin 0.520. UA noted. The cultures are pending at this time. ASSESSMENT: 1. Acute urinary tract infection without sepsis present on admission. 2. Troponin 0.99, possible acute non ST-segment elevation myocardial infarction. 3. Increased creatinine with possible acute renal failure possibly prerenal. 4. Thrombocytopenia undetermined etiology. 5. Diffuse tremors. 6. Hiatal hernia. 7. Diabetes type 2. 8. Hypertension. 9. Hypothyroidism. 10.History of cholecystectomy. 11.Remote history of nicotine dependence. 12.History of depression. RECOMMENDATIONS AND DISCUSSION: Recommend to continue current medication and symptomatic treatment. Otherwise monitor pressures closely. Continue with antibiotics. Infectious disease evaluation noted. Otherwise I would also recommend Hematology/Oncology evaluation as well as initiated by Cardiology. Monitor closely. Prognosis guarded because of above mentioned multiple medical issues. A 2D echo was also ordered. Further recommendations to follow. Home medication reconciliation was also done. MMODL / IJN: [id number] /
[2018-05-22 16:44] LABS: Glucose,Whole Blood 132 mg/dL (75-99)
--- NOTE | 2018-05-22 20:11 | P.CON ---
Consult Note - . Consult date: 05/22/18 Assessment/Plan:: This is a 67-year-old female patient with significant past history of diabetes mellitus insulin requiring. The patient states that on the weekend, she developed weakness along with shakiness and cold chills and rigors. She denies having any dysuria but states that her urine smelled strong and she had very little output. She states she was trying to hold her urine as she did not want to get up to the bathroom due to pain which is chronic in her right leg, and back. She also has chronic pain to the right arm after a fall year ago. Patient denies having frequent urinary tract infections in the past. She relates that she is an emotional eater and over 8 of a large amount and then had diarrhea while she was driving her car and had to complete driving 10 miles home while she was sitting and diarrhea. She denies any previous problems with her kidney function. Patient states that she has had several falls over the weekend one time she fell off the toilet and another time she fell on the floor when her neighbor came to the home around 2:30 in the afternoon. She apparently had some confusion also. Patient was taken by ambulance to [facility] where she was found to have a lactic acid of 2, temperature 100.7, with hypotension and tachycardia. BUN was 59 creatinine 1.92. ProBNP 5384. Urinalysis was cloudy, leukoesterase moderate, nitrates positive, RBCs 51 -100, bacteria many. Her blood sugar was also noted to be 45, total bilirubin 0.9, alkaline phosphatase 95, AST 46 and ALT 22. Chest x-ray showed mild congestive but no heart failure. Patient was given IV fluid bolus, Rocephin and transferred to [facility] emergency center where she was eventually transferred to selective care unit. She was also noted to have thrombocytopenia, elevated troponins for which cardiology is following. Her white count is at 5.6 she has been afebrile since admission. Blood cultures status received an urine culture was obtained this morning. She has received several doses of Rocephin. Patient states that she is feeling much better at this time. She denies having any nausea or vomiting. She has had no further diarrhea since her episode in the car and her last bowel movement was couple days ago. She does state she has some shortness of breath at home over the weekend but denies any at this time. She denies having any chest pain. Regarding her diabetes, she states her last hemoglobin A1c was either 5.5 or 6.5. She only checks her sugar occasionally at home but lately it has been running 74-109 Patient relates that she had to put her dog to sleep 2 weeks ago. She also becomes tearful and discusses that her son 5 years ago suicide after previous closed head injury and she also lost her 6 months later. Please see the consult note is dictated by nurse practitioner Mrs. Lisa Vazquez This 67-year-old woman is comfortable at this time and is feeling somewhat better since coming to Hospital. As noted she did present to an outside facility but with concerns underlying cardiac events she was transferred to our facility. Outside laboratory is relating to evidence of gram-negative bacilli in her blood. Fortunately this time she is feeling somewhat better and would continue current antibiotic therapy with ceftriaxone and fluid resuscitation given her marked improvement. Patient is aware were awaiting the final culture to determine what her options are his first treatment for her bacteremia. There is a potential that she will require IV antibiotic therapy. at this time continue supportive care, monitor her platelets appear to have had a significant impact from her gram-negative sepsis. We'll expect him to rapidly improve once his sepsis is resolving. I agree with evaluation, assessment and plan is dictated by nurse practitioner Mrs. Lisa Vazquez.
[2018-05-22 21:05] LABS: Glucose,Whole Blood 165 mg/dL (75-99)
[2018-05-22] MEDS: SERTRALINE 100 MG TAB PO SCH (21:33)
[2018-05-22] MEDS: PREGABALIN 100 MG CAP PO SCH (21:33)
[2018-05-22] MEDS: cefTRIAXone IN SWFI 1,000 MG/10 ML SYRINGE IVP SCH (21:33)
[2018-05-23 05:57] LABS: Glucose,Whole Blood 64 mg/dL (75-99)
[2018-05-23] MEDS: INSULIN ASPART 100 UNIT/ML 1 ML 10 ML VIAL SQ SCH ×4 (06:15→21:16)
[2018-05-23 06:16] LABS: Glucose,Whole Blood 89 mg/dL (75-99)
[2018-05-23 06:18] LABS: Basophils % (A) 0 %; Eosinophils # (A) 0.1 k/uL (0-0.7); Eosinophils % (A) 1 %; HCT 35.7 % (34.0-46.0); HGB 11.4 gm/dL (11.4-16.0); Lymphocytes # (A) 0.5 k/uL (1.0-4.8); Lymphocytes % (A) 8 %; MCH 29.1 pg (25.0-35.0); MCHC 31.9 g/dL (31.0-37.0); MCV 91.2 fL (80.0-100.0); Mean Platelet Volume 10.3; Monocytes # (A) 0.4 k/uL (0-1.0); Monocytes % (A) 5 %; Neutrophils # (A) 5.6 k/uL (1.3-7.7); Neutrophils % (A) 84 %; RBC 3.91 m/uL (3.80-5.40); RDW 14.6 % (11.5-15.5); WBC 6.6 k/uL (3.8-10.6)
[2018-05-23 06:20] LABS: Platelet Count 54 k/uL (150-450)
[2018-05-23 06:30] LABS: Calcium 8.4 mg/dL (8.4-10.2); Potassium 4.5 mmol/L (3.5-5.1)
[2018-05-23 06:38] LABS: Glucose,Whole Blood 106 mg/dL (75-99)
[2018-05-23] MEDS: LEVOTHYROXINE 75 MCG TAB PO SCH (06:45)
[2018-05-23] MEDS: PANTOPRAZOLE 40 MG TABLET PO SCH (06:45)
[2018-05-23] MEDS: INSULIN DETEMIR 100 UNIT/ML 10 ML VIAL SQ SCH (07:29)
[2018-05-23] MEDS ORDERED: glipiZIDE 10 MG TAB PO SCH (07:30)
[2018-05-23] MEDS: MULTIVITAMINS, THERA 1 EACH TAB PO SCH (08:39)
[2018-05-23] MEDS: MELOXICAM 7.5 MG TAB PO SCH (08:39)
[2018-05-23] MEDS: DONEPEZIL 10 MG TAB PO SCH (08:39)
[2018-05-23] MEDS: PREGABALIN 100 MG CAP PO SCH ×2 (08:39→20:46)
[2018-05-23] MEDS: SERTRALINE 100 MG TAB PO SCH ×2 (08:39→20:46)
[2018-05-23] MEDS: LOSARTAN-HCTZ 50-12.5 MG 1 EACH TAB PO SCH (08:40)
[2018-05-23] MEDS: ATORVASTATIN 40 MG TAB PO SCH (08:40)
[2018-05-23] MEDS: METOPROLOL TARTRATE 25 MG TAB PO SCH ×2 (08:40→20:45)
[2018-05-23] MEDS: FUROSEMIDE 20 MG TAB PO SCH (08:40)
--- NOTE | 2018-05-23 08:49 | ECHOF ---
Referral Reason:abn trop MEASUREMENTS -------- HEIGHT: 167.6 cm WEIGHT: 105.7 kg BP: 156/72 RVIDd: 3.6 cm (< 3.3) IVSd: 1.4 cm (0.6 - 1.1) LVIDd: 4.2 cm (3.9 - 5.3) LVPWd: 1.2 cm (0.6 - 1.1) IVSs: 1.9 cm LVIDs: 2.7 cm LVPWs: 2.1 cm LA Diam: 4.1 cm (2.7 - 3.8) LAESV Index (A-L): 42.27 ml/m Ao Diam: 3.1 cm (2.0 - 3.7) AV Cusp: 1.1 cm (1.5 - 2.6) MV EXCURSION: 16.226 mm (> 18.000) MV EF SLOPE: 34 mm/s (70 - 150) EPSS: 0.7 cm MV E Maynor: 1.49 m/s MV DecT: 209 ms MV A Maynor: 1.08 m/s MV E/A Ratio: 1.38 AV maxP.25 mmHg AV meanP.98 mmHg RAP: 5.00 mmHg RVSP: 45.05 mmHg FINDINGS -------- Sinus rhythm. This was a technically adequate study. The left ventricular size is normal. There is moderate concentric left ventricular hypertrophy. O verall left ventricular systolic function is normal with, an EF between 55 - 60 %. The right ventricle is mildly enlarged. LA is severely dilated >40 ml/m2 The right atrial size is normal. There is mild to moderate aortic valve sclerosis. There is mild aortic stenosis present. Peak/hermelinda n gradient across the Aortic Valve is 24.25mmHg / 14.98mmHg. Moderate mitral annular calcification present. Mild mitral regurgitation is present. The peak an d mean MV gradients are 17.79mmHg 4.88mmHg as measured by doppler. Mild tricuspid regurgitation present. There is mild pulmonary hypertension. The right ventricular systolic pressure, as measured by Doppler, is 45.05mmHg. Trace/mild (physiologic) pulmonic regurgitation. The aortic root size is normal. Normal inferior vena cava with normal inspiratory collapse consistent with estimated right atrial pre ssure of 5 mmHg. The inferior vena cava is mildly dilated. There is no pericardial effusion. CONCLUSIONS -------- 1. Sinus rhythm. 2. This was a technically adequate study. 3. The left ventricular size is normal. 4. There is moderate concentric left ventricular hypertrophy. 5. Overall left ventricular systolic function is normal with, an EF between 55 - 60 %. 6. The right ventricle is mildly enlarged. 7. LA is severely dilated >40 ml/m2 8. The right atrial size is normal. 9. There is mild to moderate aortic valve sclerosis. 10. There is mild aortic stenosis present. 11. Peak/mean gradient across the Aortic Valve is 24.25mmHg / 14.98mmHg. 12. Moderate mitral annular calcification present. 13. Mild mitral regurgitation is present. 14. The peak and mean MV gradients are 17.79mmHg 4.88mmHg as measured by doppler. 15. Mild tricuspid regurgitation present. 16. There is mild pulmonary hypertension. 17. The right ventricular systolic pressure, as measured by Doppler, is 45.05mmHg. 18. Trace/mild (physiologic) pulmonic regurgitation. 19. The aortic root size is normal. 20. Normal inferior vena cava with normal inspiratory collapse consistent with estimated right atrial pressure of 5 mmHg. 21. The inferior vena cava is mildly dilated. 22. There is no pericardial effusion. SENIOR ENGINEER: Thi Wen RDCS
[2018-05-23] MEDS ORDERED: FLUVASTATIN SODIUM 80 MG PO SCH (09:00)
[2018-05-23 11:23] LABS: Glucose,Whole Blood 83 mg/dL (75-99)
[2018-05-23 13:06] LABS: HCT 35.1 % (34.0-46.0); HGB 11.5 gm/dL (11.4-16.0); MCHC 32.6 g/dL (31.0-37.0); Mean Platelet Volume 9.4; RBC 3.82 m/uL (3.80-5.40); RDW 14.8 % (11.5-15.5); WBC 5.4 k/uL (3.8-10.6)
[2018-05-23 13:24] LABS: Platelet Count 52 k/uL (150-450)
--- NOTE | 2018-05-23 14:38 | P.PN ---
Subjective Progress Note Date: 05/23/18 This is a pleasant 59-year-old female with known history of diabetes, hypertension, hyperlipidemia, who follows with Dr. Lilly Ramirez in the office. She presented to [facility] with symptoms of extreme weakness with associated chills and cold sweats. To the patient, a couple days prior she states that she had been incontinent, while driving her vehicle, was driving for quite some time before she was able to go home and shower. She denies any dysuria or frequency. She also denies having any symptoms of any chest discomfort or difficulty in breathing. She states she has been under a considerable amount of stress and she had to put her dog down the end of March. Prior to coming to the hospital, patient states that she was extremely weak, she did attempt to get up out of a chair and fell. On presentation to [facility], patient was noted to have a temperature of 100.7, blood pressure 89/29 on admission. White blood cell count 5.0, hemoglobin 11.9, platelet count 61 INR 1.3, positive UTI. BUN 59, creatinine 1.9, sodium 137, potassium 3.9, magnesium 1.6, troponin 0.62, CK 496, MB 4.8, BNP level 5384. Lactic acid 2.0. Chest x-ray was performed which revealed mild congestion with no overt congestive heart failure. Because of the abnormal troponin patient was transferred to [facility]. She did have an echocardiogram with Doppler study performed in July of last year which revealed a normal left ventricular systolic function, LAD was severely dilated at that time. Blood Pressure on arrival here 108/56, heart rate in the 80s, temperature 98.5, 95% on 2 L oxygen. EKG on arrival here showed a normal sinus rhythm with nonspecific ST-T wave changes noted in the inferior leads. I do not have an EKG from [facility]. Laboratory data was reviewed here, white blood cell count 5.6, hemoglobin 10.8, platelet count 48 yesterday, 41 this morning. BUN 55, creatinine 1.4, yesterday's creatinine 1.6 BNP level 6870. Troponin on admission here 0.9 and 0.5. At the time of my examination this morning. Patient did have a Lexiscan stress test performed in August which was negative for any reversible ischemia. 05/23/2018 Patient was seen and examined this morning, overall feeling significantly stronger. Blood pressure 128/60, heart rate in the 60s, 95% on room air. Awaiting consultation from hematology. We had requested information on old laboratory data regarding the patient's platelets which we don't have yet. Platelet count today is 52. Echocardiogram with Doppler study was performed which revealed an ejection fraction of 55-60%. Mitral regurgitation. Objective - Vital Signs Vital signs: Vital Signs Temp 97.7 F 05/23/18 11:42 Pulse 84 05/23/18 11:42 Resp 18 05/23/18 11:42 BP 133/60 05/23/18 11:42 Pulse Ox 95 05/23/18 11:42 Intake & Output 05/22/18 05/23/18 05/23/18 18:59 06:59 18:59 Intake Total 758 300 240 Output Total 560 560 Balance 198 -260 240 Weight 99.9 kg Intake: Intake, IV Titration 300 Amount Sodium Chloride 0.9% 1, 300 000 ml @ 75 mls/hr IV . [id number] [facility] Rx#:[id number] Oral 758 0 240 Output: Urine 560 560 Other: Voiding Method Toilet Toilet Toilet # Voids 1 0 # Bowel Movements 0 - Exam PHYSICAL EXAMINATION: GENERAL: 67-year-old female in no acute distress at time of my examination HEENT: Head is atraumatic, normocephalic. Pupils equal, round. Sclera anicteric. Conjunctiva are clear. Mucous membranes of the mouth are moist. Neck is supple. There is no elevated jugular venous pressure.] bruit is heard. HEART EXAMINATION: Heart S1 S2 systolic murmur is heard CHEST EXAMINATION: Lungs are clear to auscultation and precussion. No chest wall tenderness is noted on palpation or with deep breathing. ABDOMEN: Soft, nontender. Bowel sounds are heard. No organomegaly noted. EXTREMITIES: 2+ peripheral pulses with no evidence of peripheral edema and no calf tenderness noted. NEUROLOGIC patient is awake, alert and oriented ?-3. - Labs CBC & Chem 7: 05/23/18 12:14 05/23/18 05:59 Labs: Abnormal Lab Results - Last 24 Hours (Table) 05/22/18 05/22/18 05/23/18 Range/Units 16:41 21:03 05:56 Plt Count (150-450) k/uL Lymphocytes # (1.0-4.8) k/uL BUN (7-17) mg/dL Creatinine (0.52-1.04) mg/dL Glucose (74-99) mg/dL POC Glucose (mg/dL) 132 H 165 H 64 L (75-99) mg/dL 05/23/18 05/23/18 05/23/18 Range/Units 05:59 05:59 06:31 Plt Count 54 L (150-450) k/uL Lymphocytes # 0.5 L (1.0-4.8) k/uL BUN 55 H (7-17) mg/dL Creatinine 1.24 H (0.52-1.04) mg/dL Glucose 59 L (74-99) mg/dL POC Glucose (mg/dL) 106 H (75-99) mg/dL 05/23/18 Range/Units 12:14 Plt Count 52 L (150-450) k/uL Lymphocytes # (1.0-4.8) k/uL BUN (7-17) mg/dL Creatinine (0.52-1.04) mg/dL Glucose (74-99) mg/dL POC Glucose (mg/dL) (75-99) mg/dL Microbiology - Last 24 Hours (Table) 05/22/18 08:45 Urine Culture - Final Urine,Clean Catch 05/21/18 22:04 Blood Culture - Preliminary Blood No Growth after 24 hours Assessment and Plan Plan: Assessment and plan #1 weakness with of acute UTI and sepsis #2 abnormal troponin, 0.6 at [facility], 0.9 and 0.5 here. EKG shows normal sinus rhythm with nonspecific ST-T wave changes noted in the inferior leads #3 hypertension #4 diabetes #5 hyperlipidemia #6 abnormal renal function, creatinine 16 yesterday 1.4 today. #7 thrombocytopenia, platelet count 41 this morning #8 anemia Plan Echocardiogram with Doppler study was performed which revealed an ejection fraction of 55-60%, LA severely dilated. We will attempt to retrieve a record of patient's old platelet count. We also await consultation from hematology. DNP note has been reviewed, I agree with a documented findings and plan of care. Patient was seen and examined.
--- NOTE | 2018-05-23 15:53 | PN ---
PROGRESS NOTE DATE OF SERVICE: 05/23/2018 This 67-year-old woman was admitted with acute UTI and sepsis, also had elevated troponin. The patient evaluated by Infectious Disease as well as Cardiology. No chest pain. No palpitations. Cardiology is considering medical treatment at this time. The current cultures are negative so far. No chest pain. No palpitations. No fever. EXAM: Alert, oriented x3. Pulse 60, blood pressure 130/60, respirations 16, temperature 97.7, pulse ox 94% room air. HEENT: Conjunctivae normal. NECK: No jugular venous distention. CARDIOVASCULAR: S1, S2. RESPIRATORY: Breath sounds diminished in the bases. No rhonchi, no crackles. ABDOMEN: Soft, nontender. LEGS: No edema. NERVOUS SYSTEM: No focal deficits. LABS: The platelets are 52, glucose 106. ASSESSMENT: 1. Acute urinary tract infection with sepsis, present on admission. Troponin 0.9. Possible acute non ST elevation myocardial infarction, present on admission. 2. Increased creatinine with possible acute renal failure, possibly prerenal. 3. Thrombocytopenia of undetermined etiology. 4. Diffuse tremors. 5. Hiatal hernia. 6. Diabetes mellitus type 2. 7. Hypertension. 8. Hypothyroidism. 9. History of cholecystectomy. 10.Remote history of nicotine dependence. 11.History of depression. RECOMMENDATIONS AND DISCUSSION: I recommend to continue current management and symptomatic treatment. Otherwise at this time, we will monitor the patient closely. Continue with current medications. Continue with antibiotics. Closely follow with multiple consultants. Prognosis guarded. Further recommendations to follow. MMODL / IJN: [id number] /
[2018-05-23 16:30] LABS: Glucose,Whole Blood 121 mg/dL (75-99)
--- NOTE | 2018-05-23 17:47 | P.CONS ---
History of Present Illness - Reason for Consult Consult date: 05/23/18 thrombocytopenia Requesting physician: Oralia Lazo - Chief Complaint sepsis - History of Present Illness Pt is a very pleasant female pt of PCP Dr. Corona admitted with urosepsis, she has been doing better with treatment of infection but, she was noted to have thrombocytopenia. Pt states she has had low platelets (she does not know any specific numbers) and her PCP told her "not to worry about it". She has never had a hematological work up. She denies epistaxis, hemoptysis, hematuria, lack or bloody stool, pt is current on mammograms and Pulley Man exam, she states she has never had EGD or colonoscopy. No recent fever, denies wt. loss, unusual changes in energy levels-though she is tired right now-, dysphagia, nausea, abd bloating, early satiety, changes on bowel or bladder habits, swelling or new pains. Review of Systems 10 point ROS as stated in HPI Past Medical History Past Medical History: Blood Disorder (thrombocytopenia-never worked up), Diabetes Mellitus, Hypertension, Thyroid Disorder Additional Past Medical History / Comment(s): restless leg syndrome, chronic back pain, diabetic neuropathy. History of Any Multi-Drug Resistant Organisms: None Reported Past Surgical History: Cholecystectomy Additional Past Surgical History / Comment(s): Hernia surgery, bilat elbow surgery foot surgery for plantar fasciitis, bilateral cataract removal and intraocular lens implants. Past Anesthesia/Blood Transfusion Reactions: No Reported Reaction Past Psychological History: No Psychological Hx Reported, Depression Smoking Status: Former smoker Past Alcohol Use History: None Reported Additional Past Alcohol Use History / Comment(s): Patient was a smoker of 2 packs per day for a proximal March 22 years and quit 20 years ago. She denies any marijuana, street drug or alcohol use. She currently lives alone. She is and lost her to cancer 5 years ago and also her son committed suicide by hanging 5 years ago. Past Drug Use History: None Reported - Past Family History Mother Family Medical History: Diabetes Mellitus Father Family Medical History: Coronary Artery Disease (CAD), Myocardial Infarction (DE ) Medications and Allergies Home Medications Medication Instructions Recorded Confirmed Type Donepezil [Aricept] 10 mg PO DAILY 05/22/18 05/22/18 History Fluvastatin Sodium [Fluvastatin ER] 80 mg PO DAILY 05/22/18 05/22/18 History Furosemide [Lasix] 20 mg PO DAILY 05/22/18 05/22/18 History Insulin Aspart Protam & Aspart 20 unit SQ BID 05/22/18 05/22/18 History [NovoLOG MIX 70-30 Flexpen] Levothyroxine Sodium [Synthroid] 150 mcg PO DAILY 05/22/18 05/22/18 History Losartan/Hydrochlorothiazide 1 tab PO DAILY 05/22/18 05/22/18 History [Losartan-Hctz 100-25 mg Tab] Meloxicam [Mobic] 7.5 mg PO DAILY 05/22/18 05/22/18 History Pregabalin [Lyrica] 200 mg PO BID 05/22/18 05/22/18 History Sertraline [Zoloft] 100 mg PO BID 05/22/18 05/22/18 History glipiZIDE [Glucotrol] 10 mg PO AC-[id number] 05/22/18 05/22/18 History Allergies Allergy/AdvReac Type Severity Reaction Status Date / Time No Known Allergies Allergy Verified 05/22/18 09:34 Physical Exam Vitals: Vital Signs Temp Pulse Resp BP Pulse Ox 05/23/18 11:42 97.7 F 60 16 133/60 95 05/23/18 08:42 97.8 F 66 16 128/60 95 05/23/18 03:52 97.1 F L 84 18 155/69 94 L 05/23/18 00:00 97 F L 54 L 18 122/69 96 05/22/18 19:25 97.1 F L 53 L 18 136/65 95 05/22/18 15:43 97.6 F 59 L 18 156/72 93 L Intake and Output 05/22/18 05/23/18 05/23/18 22:59 06:59 14:59 Intake Total 236 300 240 Output Total 560 Balance 236 -260 240 Intake: Intake, IV Titration 300 Amount Sodium Chloride 0.9% 1, 300 000 ml @ 75 mls/hr IV . [id number] [facility] Rx#:[id number] Oral 236 0 240 Output: Urine 560 Other: Voiding Method Toilet Toilet Toilet # Voids 1 0 # Bowel Movements 0 Weight 99.9 kg - Constitutional General appearance: cooperative, no acute distress, obese - EENT Eyes: anicteric sclerae, EOMI, normal appearance ENT: no hard of hearing, hearing grossly normal, no NA/AT, normal oropharynx, no other, no pharyngeal erythema, no thrush, no tonsillar exudates, no tonsillar swelling - Neck Neck: no lymphadenopathy - Respiratory Respiratory: bilateral: CTA - Cardiovascular Heart sounds: normal: S1, S2 Abnormal Heart Sounds: systolic murmur leg Peripheral Edema: bilateral: Trace - Gastrointestinal General gastrointestinal: no absent bowel sounds, no decreased bowel sounds, no distended, no hepatomegaly, no hyperactive bowel sounds, normal bowel sounds, no organomegaly, no rigid, no scaphoid, soft, no splenomegaly, no tenderness, no umbilical hernia, no ventral hernia - Integumentary BLE bronzing, vascular insufficiency - Neurologic Neurologic: CNII-XII intact - Musculoskeletal Musculoskeletal: generalized weakness, strength equal bilaterally - Psychiatric Psychiatric: A&O x's 3, appropriate affect, intact judgment & insight Results CBC & Chem 7: 05/23/18 12:14 05/23/18 05:59 Labs: Abnormal Lab Results - Last 24 Hours (Table) 05/22/18 05/22/18 05/23/18 Range/Units 16:41 21:03 05:56 Plt Count (150-450) k/uL Lymphocytes # (1.0-4.8) k/uL BUN (7-17) mg/dL Creatinine (0.52-1.04) mg/dL Glucose (74-99) mg/dL POC Glucose (mg/dL) 132 H 165 H 64 L (75-99) mg/dL 05/23/18 05/23/18 05/23/18 Range/Units 05:59 05:59 06:31 Plt Count 54 L (150-450) k/uL Lymphocytes # 0.5 L (1.0-4.8) k/uL BUN 55 H (7-17) mg/dL Creatinine 1.24 H (0.52-1.04) mg/dL Glucose 59 L (74-99) mg/dL POC Glucose (mg/dL) 106 H (75-99) mg/dL 05/23/18 Range/Units 12:14 Plt Count 52 L (150-450) k/uL Lymphocytes # (1.0-4.8) k/uL BUN (7-17) mg/dL Creatinine (0.52-1.04) mg/dL Glucose (74-99) mg/dL POC Glucose (mg/dL) (75-99) mg/dL Microbiology - Last 24 Hours (Table) 05/22/18 08:45 Urine Culture - Final Urine,Clean Catch 05/21/18 22:04 Blood Culture - Preliminary Blood No Growth after 24 hours Assessment and Plan (1) Thrombocytopenia Narrative/Plan: Pt has had thrombocytopenia for some time, will inquire with PCP onset and severity of. Suspect with acute illness that her platelets will likely be lower then baseline. Her platelets are stable at this time, would anticipate increase in platelets as pt recovers from acute illness. Will watch labs while pt in hospital. Reviewed Cardiology notes, there is not a need for anticoagulation but, if needed, platelets would need to be >50,000. Current Visit: Yes Status: Acute Priority: Medium Code(s): D69.6 - THROMBOCYTOPENIA, UNSPECIFIED SNOMED Code(s): 660882475
--- NOTE | 2018-05-23 20:37 | P.PN ---
Subjective Progress Note Date: 05/23/18 This is a 67-year-old female patient with significant past history of diabetes mellitus insulin requiring. The patient states that on the weekend, she developed weakness along with shakiness and cold chills and rigors. She denies having any dysuria but states that her urine smelled strong and she had very little output. She states she was trying to hold her urine as she did not want to get up to the bathroom due to pain which is chronic in her right leg, and back. She also has chronic pain to the right arm after a fall year ago. Patient denies having frequent urinary tract infections in the past. She relates that she is an emotional eater and over 8 of a large amount and then had diarrhea while she was driving her car and had to complete driving 10 miles home while she was sitting and diarrhea. She denies any previous problems with her kidney function. Patient states that she has had several falls over the weekend one time she fell off the toilet and another time she fell on the floor when her neighbor came to the home around 2:30 in the afternoon. She apparently had some confusion also. Patient was taken by ambulance to [facility] where she was found to have a lactic acid of 2, temperature 100.7, with hypotension and tachycardia. BUN was 59 creatinine 1.92. ProBNP 5384. Urinalysis was cloudy, leukoesterase moderate, nitrates positive, RBCs 51 -100, bacteria many. Her blood sugar was also noted to be 45, total bilirubin 0.9, alkaline phosphatase 95, AST 46 and ALT 22. Chest x-ray showed mild congestive but no heart failure. Patient was given IV fluid bolus, Rocephin and transferred to [facility] emergency center where she was eventually transferred to selective care unit. She was also noted to have thrombocytopenia, elevated troponins for which cardiology is following. Her white count is at 5.6 she has been afebrile since admission. Blood cultures status received an urine culture was obtained this morning. She has received several doses of Rocephin. Patient states that she is feeling much better at this time. She denies having any nausea or vomiting. She has had no further diarrhea since her episode in the car and her last bowel movement was couple days ago. She does state she has some shortness of breath at home over the weekend but denies any at this time. She denies having any chest pain. Regarding her diabetes, she states her last hemoglobin A1c was either 5.5 or 6.5. She only checks her sugar occasionally at home but lately it has been running 74-109 Patient relates that she had to put her dog to sleep 2 weeks ago. She also becomes tearful and discusses that her son 5 years ago suicide after previous closed head injury and she also lost her 6 months later. 05/23/2018 the patient is feeling better. She is not having fevers or chills, and strength is improving. Not having falls at this time. Blood sugars are improving. Objective - Vital Signs Vital signs: Vital Signs Temp 97.7 F 05/23/18 16:47 Pulse 84 05/23/18 16:47 Resp 18 05/23/18 16:47 BP 123/56 05/23/18 16:47 Pulse Ox 94 L 05/23/18 16:47 Intake & Output 05/23/18 05/23/18 05/24/18 06:59 18:59 06:59 Intake Total 300 660 Output Total 560 400 Balance -260 260 Weight 99.9 kg Intake: Intake, IV Titration 300 Amount Sodium Chloride 0.9% 1, 300 000 ml @ 75 mls/hr IV . [id number] [id number] Rx#:[id number] Oral 0 660 Output: Urine 560 400 Other: Voiding Method Toilet Toilet # Voids 0 # Bowel Movements 0 1 - Exam Gen: This is a 67-year-old female. She is sitting on the edge of the bed and appears to be comfortable and in no acute distress. Patient does become tearful when she is talking about the loss of her son, and dog. HEENT: Head is atraumatic, normocephalic. Pupils equal, round. Sclerae is anicteric. Conjunctiva pink. Mucous members of the mouth are dry. NECK: Supple. No JVD. No lymphadenopathy. No thyromegaly. LUNGS: Clear to auscultation. No wheezes or rhonchi. No intercostal retractions. HEART: Regular rate and rhythm. Systolic murmur. ABDOMEN: Soft. Bowel sounds are present. No masses. No tenderness. No CVA tenderness bilaterally. EXTREMITIES: No pedal edema. No calf tenderness. Dorsalis pedis is +2 bilaterally. NEUROLOGICAL: Patient is awake, alert and oriented x3 - Labs CBC & Chem 7: 05/23/18 12:14 05/23/18 05:59 Labs: Abnormal Lab Results - Last 24 Hours (Table) 05/22/18 05/23/18 05/23/18 Range/Units 21:03 05:56 05:59 Plt Count 54 L (150-450) k/uL Lymphocytes # 0.5 L (1.0-4.8) k/uL BUN (7-17) mg/dL Creatinine (0.52-1.04) mg/dL Glucose (74-99) mg/dL POC Glucose (mg/dL) 165 H 64 L (75-99) mg/dL 05/23/18 05/23/18 05/23/18 Range/Units 05:59 06:31 12:14 Plt Count 52 L (150-450) k/uL Lymphocytes # (1.0-4.8) k/uL BUN 55 H (7-17) mg/dL Creatinine 1.24 H (0.52-1.04) mg/dL Glucose 59 L (74-99) mg/dL POC Glucose (mg/dL) 106 H (75-99) mg/dL 05/23/18 Range/Units 16:27 Plt Count (150-450) k/uL Lymphocytes # (1.0-4.8) k/uL BUN (7-17) mg/dL Creatinine (0.52-1.04) mg/dL Glucose (74-99) mg/dL POC Glucose (mg/dL) 121 H (75-99) mg/dL Microbiology - Last 24 Hours (Table) 05/22/18 08:45 Urine Culture - Final Urine,Clean Catch 05/21/18 22:04 Blood Culture - Preliminary Blood No Growth after 24 hours Laboratory Results WBC 5.4 k/uL (3.8-10.6) 05/23/18 12:14 RBC 3.82 m/uL (3.80-5.40) 05/23/18 12:14 Hgb 11.5 gm/dL (11.4-16.0) 05/23/18 12:14 Hct 35.1 % (34.0-46.0) 05/23/18 12:14 MCV 92.0 fL (80.0-100.0) 05/23/18 12:14 MCH 30.0 pg (25.0-35.0) 05/23/18 12:14 MCHC 32.6 g/dL (31.0-37.0) 05/23/18 12:14 RDW 14.8 % (11.5-15.5) 05/23/18 12:14 Plt Count 52 k/uL (150-450) L 05/23/18 12:14 Neutrophils % 84 % 05/23/18 05:59 Neutrophils % (Manual) 58 % 05/21/18 19:23 Band Neutrophils % 34 % 05/21/18 19:23 Lymphocytes % 8 % 05/23/18 05:59 Lymphocytes % (Manual) 5 % 05/21/18 19:23 Monocytes % 5 % 05/23/18 05:59 Monocytes % (Manual) 3 % 05/21/18 19:23 Eosinophils % 1 % 05/23/18 05:59 Basophils % 0 % 05/23/18 05:59 Metamyelocytes % 2 % 05/21/18 19:23 Neutrophils # 5.6 k/uL (1.3-7.7) 05/23/18 05:59 Neutrophils # (Manual) 5.10 k/uL (1.3-7.7) 05/21/18 19:23 Lymphocytes # 0.5 k/uL (1.0-4.8) L 05/23/18 05:59 Lymphocytes # (Manual) 0.28 k/uL (1.0-4.8) L 05/21/18 19:23 Monocytes # 0.4 k/uL (0-1.0) 05/23/18 05:59 Monocytes # (Manual) 0.17 k/uL (0-1.0) 05/21/18 19:23 Eosinophils # 0.1 k/uL (0-0.7) 05/23/18 05:59 Basophils # 0.0 k/uL (0-0.2) 05/23/18 05:59 Metamyelocytes # (Man) 0.11 k/uL (0) H 05/21/18 19:23 Nucleated RBCs 0 /100 WBC (0-0) 05/21/18 19:23 Manual Slide Review Performed 05/21/18 19:23 RBC Morphology Normal 05/21/18 19:23 PT 12.0 sec (9.0-12.0) 05/21/18 19:23 INR 1.3 (<1.2) H 05/21/18 19:23 APTT 25.3 sec (22.0-30.0) 05/21/18 19:23 Sodium 140 mmol/L (137-145) 05/23/18 05:59 Potassium 4.5 mmol/L (3.5-5.1) 05/23/18 05:59 Chloride 106 mmol/L (98-107) 05/23/18 05:59 Carbon Dioxide 26 mmol/L (22-30) 05/23/18 05:59 Anion Gap 8 mmol/L 05/23/18 05:59 BUN 55 mg/dL (7-17) H 05/23/18 05:59 Creatinine 1.24 mg/dL (0.52-1.04) H 05/23/18 05:59 Est GFR (CKD-EPI)AfAm 52 (>60 ml/min/1.73 sqM) 05/23/18 05:59 Est GFR (CKD-EPI)NonAf 45 (>60 ml/min/1.73 sqM) 05/23/18 05:59 Glucose 59 mg/dL (74-99) L 05/23/18 05:59 POC Glucose (mg/dL) 121 mg/dL (75-99) H 05/23/18 16:27 POC Glu [employer] Maria Dolores Guthrie 05/23/18 16:[address] Glu mg/dL 151 05/21/18 19:23 Hemoglobin A1c 6.9 % (4.0-6.0) H 05/21/18 19:23 Calcium 8.4 mg/dL (8.4-10.2) 05/23/18 05:59 Troponin I 0.502 ng/mL (0.000-0.034) H* 05/22/18 01:53 NT-Pro-B Natriuret Pep 6870 pg/mL 05/21/18 19:23 Urine Color Light Yellow 05/22/18 08:45 Urine Appearance Clear (Clear) 05/22/18 08:45 Urine pH 5.0 (5.0-8.0) 05/22/18 08:45 Ur Specific [place] 1.008 (1.001-1.035) 05/22/18 08:45 Urine Protein Trace (Negative) H 05/22/18 08:45 Urine Glucose (UA) 2+ (Negative) H 05/22/18 08:45 Urine Ketones Negative (Negative) 05/22/18 08:45 Urine Blood Moderate (Negative) H 05/22/18 08:45 Urine Nitrite Negative (Negative) 05/22/18 08:45 Urine Bilirubin Negative (Negative) 05/22/18 08:45 Urine Urobilinogen <2.0 mg/dL (<2.0) 05/22/18 08:45 Ur Leukocyte Esterase Large (Negative) H 05/22/18 08:45 Urine RBC 30 /hpf (0-5) H 05/22/18 08:45 Urine WBC 46 /hpf (0-5) H 05/22/18 08:45 Ur Squamous Epith Cells <1 /hpf (0-4) 05/22/18 08:45 Urine Bacteria Rare /hpf (None) H 05/22/18 08:45 Microbiology 05/22/18 08:45 Urine,Clean Catch Urine Culture - Final 05/21/18 22:04 Blood Blood Culture - Preliminary No Growth after 24 hours Culture at [facility] reveals evidence of gram-negative bacilli Assessment and Plan (1) Urinary tract infection Narrative/Plan: This 67-year-old woman is comfortable at this time and is feeling somewhat better since coming to Hospital. As noted she did present to an outside facility but with concerns underlying cardiac events she was transferred to our facility. Outside laboratory is relating to evidence of gram-negative bacilli in her blood. Fortunately this time she is feeling somewhat better and would continue current antibiotic therapy with ceftriaxone and fluid resuscitation given her marked improvement. Patient is aware were awaiting the final culture to determine what her options are his first treatment for her bacteremia. There is a potential that she will require IV antibiotic therapy. at this time continue supportive care, monitor her platelets appear to have had a significant impact from her gram-negative sepsis. We'll expect him to rapidly improve once his sepsis is resolving. 05/23/2018 patient is feeling better today. Thrombocytopenia starting to improve clearance of gone from 41-54. She has been seen by hematology and follow-up is in process. The outside hospital laboratories been contacted and there is evidence of gram- negative bacilli in the final culture is still pending. Once we have final susceptibility than the plan for antibiotic therapy can then be made. There is concern that the gram-negative sepsis has markedly affected her thrombocytopenia , but does appear there may be some baseline low platelet still occurring in the past. Once infection has been well treated likely follow up with hematology in the outpatient setting. Cardiology is following there is evidence of left atrial dilatation but preserved ejection fraction, and acute kidney injury is also improving at this time. Current Visit: Yes Status: Acute Code(s): N39.0 - URINARY TRACT INFECTION, SITE NOT SPECIFIED SNOMED Code(s): 51987410 (2) Thrombocytopenia Current Visit: Yes Status: Acute Priority: Medium Code(s): D69.6 - THROMBOCYTOPENIA, UNSPECIFIED SNOMED Code(s): 025310532 (3) Sepsis Current Visit: Yes Status: Acute Code(s): A41.9 - SEPSIS, UNSPECIFIED ORGANISM SNOMED Code(s): 75035240
[2018-05-23] MEDS ORDERED: INSULIN DETEMIR 100 UNIT/ML 10 ML VIAL SQ SCH (21:00)
[2018-05-23 21:08] LABS: Glucose,Whole Blood 144 mg/dL (75-99)
[2018-05-23] MEDS: cefTRIAXone IN SWFI 1,000 MG/10 ML SYRINGE IVP SCH (21:37)
[2018-05-24 04:46] VITALS: PULSE 60
[2018-05-24 05:53] LABS: Glucose,Whole Blood 63 mg/dL (75-99)
[2018-05-24] MEDS: INSULIN ASPART 100 UNIT/ML 1 ML 10 ML VIAL SQ SCH ×2 (06:00→11:19)
[2018-05-24 06:06] LABS: Basophils % (A) 0 %; Eosinophils # (A) 0.1 k/uL (0-0.7); Eosinophils % (A) 3 %; HCT 36.2 % (34.0-46.0); HGB 11.3 gm/dL (11.4-16.0); Lymphocytes # (A) 0.6 k/uL (1.0-4.8); Lymphocytes % (A) 17 %; MCH 28.7 pg (25.0-35.0); MCHC 31.1 g/dL (31.0-37.0); MCV 92.2 fL (80.0-100.0); Mean Platelet Volume 8.9; Monocytes # (A) 0.3 k/uL (0-1.0); Monocytes % (A) 7 %; Neutrophils # (A) 2.6 k/uL (1.3-7.7); Neutrophils % (A) 70 %; RBC 3.93 m/uL (3.80-5.40); RDW 14.6 % (11.5-15.5); WBC 3.6 k/uL (3.8-10.6)
[2018-05-24 06:23] LABS: Glucose,Whole Blood 67 mg/dL (75-99)
[2018-05-24] MEDS: INSULIN DETEMIR 100 UNIT/ML 10 ML VIAL SQ SCH (06:26)
[2018-05-24] MEDS: LEVOTHYROXINE 75 MCG TAB PO SCH (06:27)
[2018-05-24] MEDS: PANTOPRAZOLE 40 MG TABLET PO SCH (06:27)
[2018-05-24 06:39] LABS: Glucose,Whole Blood 68 mg/dL (75-99)
[2018-05-24 06:54] LABS: Platelet Count 48 k/uL (150-450)
[2018-05-24] MEDS ORDERED: DEXTROSE 50%-WATER 50 ML SYRINGE IVP ONE (06:57)
[2018-05-24 07:00] LABS: Calcium 8.2 mg/dL (8.4-10.2); Potassium 4.3 mmol/L (3.5-5.1)
[2018-05-24 07:00] LABS: Glucose,Whole Blood 76 mg/dL (75-99)
[2018-05-24] MEDS: MULTIVITAMINS, THERA 1 EACH TAB PO SCH (08:00)
[2018-05-24] MEDS: DONEPEZIL 10 MG TAB PO SCH (08:00)
[2018-05-24] MEDS: METOPROLOL TARTRATE 25 MG TAB PO SCH (08:00)
[2018-05-24] MEDS: FUROSEMIDE 20 MG TAB PO SCH (08:01)
[2018-05-24] MEDS: MELOXICAM 7.5 MG TAB PO SCH (08:01)
[2018-05-24] MEDS: ATORVASTATIN 40 MG TAB PO SCH (08:01)
[2018-05-24] MEDS: LOSARTAN-HCTZ 50-12.5 MG 1 EACH TAB PO SCH (08:01)
[2018-05-24] MEDS: PREGABALIN 100 MG CAP PO SCH (08:01)
[2018-05-24] MEDS: SERTRALINE 100 MG TAB PO SCH (08:01)
[2018-05-24 11:10] LABS: Glucose,Whole Blood 128 mg/dL (75-99)
[2018-05-24 12:18] VITALS: BP 131/70; TEMP 97.8
--- NOTE | 2018-05-24 13:36 | P.PN ---
Subjective Progress Note Date: 05/24/18 This is a pleasant 59-year-old female with known history of diabetes, hypertension, hyperlipidemia, who follows with Dr. Lilly Ramirez in the office. She presented to [facility] with symptoms of extreme weakness with associated chills and cold sweats. To the patient, a couple days prior she states that she had been incontinent, while driving her vehicle, was driving for quite some time before she was able to go home and shower. She denies any dysuria or frequency. She also denies having any symptoms of any chest discomfort or difficulty in breathing. She states she has been under a considerable amount of stress and she had to put her dog down the end of March. Prior to coming to the hospital, patient states that she was extremely weak, she did attempt to get up out of a chair and fell. On presentation to [facility], patient was noted to have a temperature of 100.7, blood pressure 89/29 on admission. White blood cell count 5.0, hemoglobin 11.9, platelet count 61 INR 1.3, positive UTI. BUN 59, creatinine 1.9, sodium 137, potassium 3.9, magnesium 1.6, troponin 0.62, CK 496, MB 4.8, BNP level 5384. Lactic acid 2.0. Chest x-ray was performed which revealed mild congestion with no overt congestive heart failure. Because of the abnormal troponin patient was transferred to [facility]. She did have an echocardiogram with Doppler study performed in July of last year which revealed a normal left ventricular systolic function, LAD was severely dilated at that time. Blood Pressure on arrival here 108/56, heart rate in the 80s, temperature 98.5, 95% on 2 L oxygen. EKG on arrival here showed a normal sinus rhythm with nonspecific ST-T wave changes noted in the inferior leads. I do not have an EKG from [facility]. Laboratory data was reviewed here, white blood cell count 5.6, hemoglobin 10.8, platelet count 48 yesterday, 41 this morning. BUN 55, creatinine 1.4, yesterday's creatinine 1.6 BNP level 6870. Troponin on admission here 0.9 and 0.5. At the time of my examination this morning. Patient did have a Lexiscan stress test performed in August which was negative for any reversible ischemia. 05/23/2018 Patient was seen and examined this morning, overall feeling significantly stronger. Blood pressure 128/60, heart rate in the 60s, 95% on room air. Awaiting consultation from hematology. We had requested information on old laboratory data regarding the patient's platelets which we don't have yet. Platelet count today is 52. Echocardiogram with Doppler study was performed which revealed an ejection fraction of 55-60%. Mitral regurgitation. 05/23/2018 was seen and examined this morning, feeling much better overall. Blood pressure 130/70 with a heart rate in the 50s, 94% on room air. Anticipating possible discharge home today. When the patient is discharged we will make her a follow-up appointment to see Dr. MARCI Ramirez in the office post discharge. Objective - Vital Signs Vital signs: Vital Signs Temp 97.8 F 05/24/18 12:15 Pulse 60 05/24/18 12:15 Resp 18 05/24/18 12:15 BP 131/70 05/24/18 12:15 Pulse Ox 94 L 05/24/18 12:15 Intake & Output 05/23/18 05/24/18 05/24/18 18:59 06:59 18:59 Intake Total 660 240 Output Total 400 Balance 260 240 Weight 96.9 kg Intake: Oral 660 240 Output: Urine 400 Other: Voiding Method Toilet Toilet Toilet # Voids 2 # Bowel Movements 1 - Exam PHYSICAL EXAMINATION: GENERAL: 67-year-old female in no acute distress at time of my examination HEENT: Head is atraumatic, normocephalic. Pupils equal, round. Sclera anicteric. Conjunctiva are clear. Mucous membranes of the mouth are moist. Neck is supple. There is no elevated jugular venous pressure.] bruit is heard. HEART EXAMINATION: Heart S1 S2 systolic murmur is heard CHEST EXAMINATION: Lungs are clear to auscultation and precussion. No chest wall tenderness is noted on palpation or with deep breathing. ABDOMEN: Soft, nontender. Bowel sounds are heard. No organomegaly noted. EXTREMITIES: 2+ peripheral pulses with no evidence of peripheral edema and no calf tenderness noted. NEUROLOGIC patient is awake, alert and oriented ?-3. - Labs CBC & Chem 7: 05/24/18 05:38 05/24/18 05:38 Labs: Abnormal Lab Results - Last 24 Hours (Table) 0705/23/18 05/24/18 Range/Units 16:27 21:01 05:38 WBC 3.6 L (3.8-10.6) k/uL Hgb 11.3 L (11.4-16.0) gm/dL Plt Count 48 L* (150-450) k/uL Lymphocytes # 0.6 L (1.0-4.8) k/uL BUN (7-17) mg/dL Creatinine (0.52-1.04) mg/dL Glucose (74-99) mg/dL POC Glucose (mg/dL) 121 H 144 H (75-99) mg/dL Calcium (8.4-10.2) mg/dL 05/24/18 05/24/18 05/24/18 Range/Units 05:38 05:49 06:22 WBC (3.8-10.6) k/uL Hgb (11.4-16.0) gm/dL Plt Count (150-450) k/uL Lymphocytes # (1.0-4.8) k/uL BUN 56 H (7-17) mg/dL Creatinine 1.28 H (0.52-1.04) mg/dL Glucose 65 L (74-99) mg/dL POC Glucose (mg/dL) 63 L 67 L (75-99) mg/dL Calcium 8.2 L (8.4-10.2) mg/dL 05/24/18 05/24/18 Range/Units 06:38 11:09 WBC (3.8-10.6) k/uL Hgb (11.4-16.0) gm/dL Plt Count (150-450) k/uL Lymphocytes # (1.0-4.8) k/uL BUN (7-17) mg/dL Creatinine (0.52-1.04) mg/dL Glucose (74-99) mg/dL POC Glucose (mg/dL) 68 L 128 H (75-99) mg/dL Calcium (8.4-10.2) mg/dL Microbiology - Last 24 Hours (Table) 05/21/18 22:04 Blood Culture - Preliminary Blood No Growth after 48 hours 05/22/18 08:45 Urine Culture - Final Urine,Clean Catch Assessment and Plan Plan: Assessment and plan #1 weakness with of acute UTI and sepsis #2 abnormal troponin, 0.6 at [place], 0.9 and 0.5 here. EKG shows normal sinus rhythm with nonspecific ST-T wave changes noted in the inferior leads #3 hypertension #4 diabetes #5 hyperlipidemia #6 abnormal renal function, creatinine 16 yesterday 1.4 today. #7 thrombocytopenia, platelet count 41 this morning #8 anemia Plan Echocardiogram with Doppler study was performed which revealed an ejection fraction of 55-60%, LA severely dilated. From cardiology's perspective, patient may be able to be discharged home once cleared by primary. We will make a follow-up appointment for her to see Dr. MARCI Ramirez in the office post discharge. DNP note has been reviewed, I agree with a documented findings and plan of care. Patient was seen and examined.
--- NOTE | 2018-05-24 17:13 | DS ---
DISCHARGE SUMMARY DATE OF SERVICE: 05/24/2018. FINAL DIAGNOSES: 1. Acute urinary tract infection with sepsis present on admission. 2. Troponin 0.[address] elevation myocardial infarction, present on admission. 3. Increased creatinine with possible acute renal failure, possibly prerenal. 4. Thrombocytopenia, undetermined etiology. 5. Diffuse tremors. 6. Hiatal hernia. 7. Diabetes mellitus type 2. 8. Hypertension. 9. Hypothyroidism. 10.History of cholecystectomy. 11.History of remote nicotine dependence. 12.History of depression. DISCHARGE DISPOSITION: The patient will be discharged in stable condition with guarded prognosis. Discharge cleared by Cardiology. HISTORY OF PRESENT ILLNESS: This 67-year-old woman with a past medical history as mentioned admitted with UTI and as well as possible acute non-ST elevation myocardial infarction, treated symptomatically. The patient had thrombocytopenia, which is rather chronic in nature according to Hematology/Oncology. Cardiology saw the patient and recommended outpatient followup and continued medical treatment at this time. On exam, vitals are stable. CARDIOVASCULAR: S1, S2. ABDOMEN: Soft. DISCHARGE ADVICE AND MEDICATIONS: 1. Discharge diet is cardiac. 2. Activity is limited until followup. 3. Follow up with Dr. German Corona as advised. 4. Follow up with Cardiology and ID as well as Hematology/Oncology as recommended. MEDICATIONS: 1. Aricept 10 mg p.o. daily. 2. Lasix 20 mg p.o. daily. 3. Glucotrol 10 mg daily a.c. breakfast. 4. Insulin 70/30 20 units subcu b.i.d. 5. Synthroid 150 mcg p.o. daily. 6. Losartan hydrochlorothiazide 1 tab p.o. daily. 7. Mobic 7.5 mg p.o. daily. 8. Lyrica 200 mg p.o. b.i.d. 9. Zoloft 100 mg p.o. b.i.d. 10.Tylenol p.r.n. 11.Lipitor 40 mg p.o. daily. 12.Lopressor 25 mg p.o. b.i.d. 13.Multivitamins 1 p.o. daily. Follow with Dr. Bal Ramirez as recommended. Follow up labs of CBC and BMP in the outpatient setting for continued monitoring. MMODL / IJN: [id number] /
[2018-05-29 11:07] LABS: Albumin 3.44 g/dL (3.80-4.90); Gamma Globulin 0.84 g/dL (0.70-1.50); Protein, Total 6.4 g/dL (6.2-8.2)
== END 2018-05-24 16:17 | disposition home or self-care (01) | DRG 871 ==
LOC: EC 19:09 → 6SEL 19:27
PROVIDERS: ADMIT Internal Medicine; ATTEND Internal Medicine
DX: A41.50 Gram-negative sepsis, unspecified (principal); I21.4 Non-ST elevation (NSTEMI) myocardial infarction; N17.9 Acute kidney failure, unspecified; N39.0 Urinary tract infection, site not specified; D64.9 Anemia, unspecified; D69.6 Thrombocytopenia, unspecified; E03.9 Hypothyroidism, unspecified; E11.40 Type 2 diabetes mellitus with diabetic neuropathy, unspecified; E78.5 Hyperlipidemia, unspecified; F32.9 Major depressive disorder, single episode, unspecified; G25.81 Restless legs syndrome; I10 Essential (primary) hypertension; I34.0 Nonrheumatic mitral (valve) insufficiency; K43.9 Ventral hernia without obstruction or gangrene; K44.9 Diaphragmatic hernia without obstruction or gangrene; G89.29 Other chronic pain; M79.601 Pain in right arm; R29.6 Repeated falls; M54.9 Dorsalgia, unspecified; Z79.4 Long term (current) use of insulin; Z79.899 Other long term (current) drug therapy; Z79.890 Hormone replacement therapy; Z87.891 Personal history of nicotine dependence; Z90.49 Acquired absence of other specified parts of digestive tract; Z98.42 Cataract extraction status, left eye; Z98.41 Cataract extraction status, right eye; Z96.1 Presence of intraocular lens; Z82.49 Family history of ischemic heart disease and other diseases of the circulatory system; Z83.3 Family history of diabetes mellitus
CPT/HCPCS: 36415; 80048; 81001; 82607; 82747; 83036; 83735; 83880; 83883; 83921; 84165; 84484; 85025; 85027; 85610; 85730; 86334; 87040; 87086; 93306; 99285

== ENCOUNTER 2020-12-26 15:33 | Inpatient (IN) | payer BC, MEDICARE ==
[2020-12-26] MEDS ORDERED: ASPIRIN 81 MG PO STA (16:04)
[2020-12-26] MEDS ORDERED: NITROGLYCERIN OINT 1 INCH/GM PACKET TOPICAL STA (16:04)
[2020-12-26] MEDS ORDERED: FUROSEMIDE 10 MG/ML 4 ML VIAL IV STA (16:05)
--- NOTE | 2020-12-26 16:25 | XR ---
EXAMINATION TYPE: XR chest 2V DATE OF EXAM: 12/26/2020 COMPARISON: 03/05/2010 HISTORY: Shortness of breath TECHNIQUE: Frontal and lateral views of the chest are obtained. FINDINGS: Scattered senescent parenchymal changes noted. Hyperinflation compatible with COPD. Patchy perihilar and basilar infiltrates suspicious for pneumonia. Heart size is stable. Mediastinal structures are stable and grossly unremarkable. No evidence for hilar prominence. Degenerative changes dorsal spine. IMPRESSION: 1. Patchy perihilar and basilar infiltrates suspicious for pneumonia.
[2020-12-26 17:10] LABS: INR 1.1 (<1.2); Prothrombin Time 11.2 sec (9.0-12.0)
[2020-12-26 17:11] LABS: Potassium 3.7 mmol/L (3.5-5.1)
[2020-12-26 17:12] LABS: Albumin 3.6 g/dL (3.5-5.0); Calcium 8.6 mg/dL (8.4-10.2); Magnesium 1.9 mg/dL (1.6-2.3)
[2020-12-26 17:13] LABS: Anisocytosis Slight; HCT 42.1 % (34.0-46.0); HGB 13.5 gm/dL (11.4-16.0); Hypochromasia Slight; MCH 28.9 pg (25.0-35.0); MCV 90.3 fL (80.0-100.0); Mean Platelet Volume 9.9; Platelet Count 104 k/uL (150-450); RBC 4.67 m/uL (3.80-5.40); RDW 17.4 % (11.5-15.5); WBC 7.9 k/uL (3.8-10.6)
[2020-12-26] MEDS ORDERED: DEXTROSE 50% SYRINGE 50 ML IVP STA (17:26)
[2020-12-26 17:30] LABS: Eosinophils # (M) 0.24 k/uL (0-0.7); Lymphocytes # (M) 2.13 k/uL (1.0-4.8); Monocytes # (M) 0.95 k/uL (0-1.0); Neutrophils # (M) 4.58 k/uL (1.3-7.7); Neutrophils % (M) 58 %; Nucleated Red Blood Cells 0 /100 WBC (0-0); Total Cells Counted 100
[2020-12-26 17:31] LABS: Polychromasia Present
[2020-12-26 17:52] LABS: Glucose,Whole Blood 125 mg/dL (75-99)
--- NOTE | 2020-12-26 18:27 | ED ---
Chest Pain HPI - General Chief Complaint: Chest Pain Stated Complaint: Syncope, light headed, chest pain, weakness Source: patient Mode of arrival: ambulatory Limitations: no limitations - History of Present Illness Initial Comments: This 70-year-old female presents with daughter with the complaint of some chest pain and shortness of breath which is exertional in nature. It has been going on for several months. She followed up with her chemical plant worker today and they sent her to the ER for further evaluation. They present and no relating that he is worried about the possibility of congestive heart failure. The patient denies any previously known coronary artery disease. She had a stress test approximately one year ago. Daughter is present and is helpful with history as well. She has some mild lower extremity swelling as well. Denies any history of DVT or PE. There's been no fevers or cough. No other complaints or modifying factors. - Related Data Home Medications Medication Instructions Recorded Confirmed Donepezil [Aricept] 10 mg PO DAILY 05/22/18 05/22/18 Furosemide [Lasix] 20 mg PO DAILY 05/22/18 05/22/18 Insulin Aspart Protam & Aspart 20 unit SQ BID 05/22/18 05/22/18 [NovoLOG MIX 70-30 Flexpen] Levothyroxine Sodium [Synthroid] 150 mcg PO DAILY 05/22/18 05/22/18 Losartan/Hydrochlorothiazide 1 tab PO DAILY 05/22/18 05/22/18 [Losartan-Hctz 100-25 mg Tab] Meloxicam [Mobic] 7.5 mg PO DAILY 05/22/18 05/22/18 Pregabalin [Lyrica] 200 mg PO BID 05/22/18 05/22/18 Sertraline [Zoloft] 100 mg PO BID 05/22/18 05/22/18 glipiZIDE [Glucotrol] 10 mg PO AC-BRKFST 05/22/18 05/22/18 Previous Rx's Medication Instructions Recorded Acetaminophen Tab [Tylenol] 650 mg PO Q6HR PRN tab 05/24/18 Atorvastatin [Lipitor] 40 mg PO DAILY #30 tab 05/24/18 Ciprofloxacin HCl [Cipro] 500 mg PO Q12HR #28 tablet 05/24/18 Metoprolol Tartrate [Lopressor] 25 mg PO BID #60 tab 05/24/18 Multivitamins, Thera [Multivitamin 1 each PO DAILY@1200 #30 tab 05/24/18 (formulary)] Allergies Allergy/AdvReac Type Severity Reaction Status Date / Time No Known Allergies Allergy Verified 12/26/20 15:45 Review of Systems ROS Statement: Those systems with pertinent positive or pertinent negative responses have been documented in the HPI. ROS Other: All systems not noted in ROS Statement are negative. Past Medical History Past Medical History: Blood Disorder, Diabetes Mellitus, Hypertension, Thyroid Disorder Additional Past Medical History / Comment(s): restless leg syndrome, chronic back pain, diabetic neuropathy. History of Any Multi-Drug Resistant Organisms: None Reported Past Surgical History: Cholecystectomy Additional Past Surgical History / Comment(s): Hernia surgery, bilat elbow surgery foot surgery for plantar fasciitis, bilateral cataract removal and intraocular lens implants. Past Anesthesia/Blood Transfusion Reactions: No Reported Reaction Past Psychological History: No Psychological Hx Reported, Depression Smoking Status: Never smoker Past Alcohol Use History: None Reported Past Drug Use History: None Reported - Past Family History Mother Family Medical History: Diabetes Mellitus Father Family Medical History: Coronary Artery Disease (CAD), Myocardial Infarction ([place]) General Exam - General Exam Comments Initial Comments: Constitutional: Alert and oriented, no apparent distress Vitals: Reviewed, please see nursing notes HEENT: No gross trauma identified, trachea midline, no respiratory distress Neck: No tenderness, good range of motion Heart: Regular rate and rhythm without murmur mild lower extremity edema noted bilaterally. Lungs: Mild Rales noted bilaterally. Abdomen: No tenderness or peritoneal signs noted, nondistended Back: No tenderness Neurologic: No gross sensory or motor deficits identified Integumentary: No rash or change in pigmentation Psychiatric: Alert and oriented, appropriate mood and affect Limitations: no limitations Course Vital Signs 12/26/20 12/26/20 12/26/20 15:42 16:42 16:43 Temperature 98.9 F Pulse Rate 59 L 54 L Respiratory 20 18 Rate Blood Pressure 124/58 100/56 O2 Sat by Pulse 95 87 L 97 Oximetry 12/26/20 12/26/20 16:57 17:30 Temperature Pulse Rate 53 L 61 Respiratory 16 18 Rate Blood Pressure 118/40 104/62 O2 Sat by Pulse 95 95 Oximetry Procedures - [place] Protocol (Time Out) Nurse: Paco Burrows Chest Pain [facility] The patient was seen and examined. All diagnostics are reviewed. The patient had an EKG done which shows a normal sinus rhythm at a rate of 63. There is flattened T waves noted in the lateral and inferior leads. No ST elevation identified. The ND intervals 166, QRS duration is 90, and QTC intervals 454. The patient was placed on a monitor worker no ectopy is identified. Her blood sugar came back low in the 40s and she is given one half amp of D50 and food tray. She relates that she takes insulin for her diabetes twice a day. She barely ate any food today as she was at the doctor's office visit and then directly to the ER. Her repeat blood sugar is improved. Her laboratory shows significant elevation of her BNP. It also shows elevation of the troponin. The chest x-ray was read out as infiltrate of changes possible pneumonia. Per my evaluation it is consistent with congestive heart failure. Patient is given an aspirin, Nitropaste is ordered, and she is also given 40 mg of Lasix intravenously. It is felt as though she potentially could have a non-ST elevation myocardial infarction. Heparin will also be initiated. She'll will be admitted to the hospital with cardiology to consult. Internal medicine has been paged and we are currently awaiting their call back. Disposition Clinical Impression: Acute non-ST elevation myocardial infarction (NSTEMI), Chest pain, Dyspnea, Congestive heart failure, Elevated troponin, Diabetes, Hypoglycemia Disposition: ADMITTED IP TO THIS HOSP Condition: Fair Is patient prescribed a controlled substance at d/c from ED?: No Referrals: German Villalobos DO [Primary Care Provider] - 1-2 days Time of Disposition: 18:26 Decision Date: 12/26/20 Decision Time: 18:27
[2020-12-26] MEDS ORDERED: NITROGLYCERIN SL TABS 0.4 MG TAB SUBLINGUAL PRN (18:55)
[2020-12-26] MEDS ORDERED: ACETAMINOPHEN TAB 325 MG TAB PO PRN (18:55)
[2020-12-26] MEDS ORDERED: HEPARIN SODIUM,PORCINE 5,000 UNIT/ML 1 ML VIAL IV ONE (18:55)
[2020-12-26 18:58] LABS: Glucose,Whole Blood 137 mg/dL (75-99)
[2020-12-26] MEDS: HEPARIN SOD,PORK IN 0.45% NACL 25,000 UNIT in 0.45% NACL 1 250ML.BAG IV SCH (19:11)
[2020-12-26] MEDS: FUROSEMIDE 10 MG/ML 4 ML VIAL IV SCH (21:33)
[2020-12-27] MEDS: NITROGLYCERIN OINT 1 INCH/GM PACKET TOPICAL SCH ×2 (00:45→06:00)
[2020-12-27] MEDS: PREGABALIN 100 MG CAP PO SCH ×3 (00:47→20:20)
[2020-12-27] MEDS: SERTRALINE 100 MG TAB PO SCH ×3 (00:48→20:19)
[2020-12-27 06:01] LABS: Glucose,Whole Blood 75 mg/dL (75-99)
[2020-12-27 08:26] LABS: Cholesterol 148 mg/dL (<200); HDL Cholesterol 46 mg/dL (40-60); LDL Cholesterol,Calculated 85 mg/dL (0-99); Triglycerides 87 mg/dL (<150)
[2020-12-27] MEDS: FUROSEMIDE 10 MG/ML 4 ML VIAL IV SCH ×2 (08:52→20:20)
[2020-12-27] MEDS: ASPIRIN 81 MG PO SCH (08:52)
[2020-12-27] MEDS ORDERED: ASPIRIN 325 MG TAB PO SCH (09:00)
[2020-12-27] MEDS ORDERED: HEPARIN SODIUM,PORCINE 5,000 UNIT/ML 1 ML VIAL IV PRN (09:05)
--- NOTE | 2020-12-27 10:25 | P.CRDCN ---
History of Present Illness History of present illness: HISTORY OF PRESENTING ILLNESS This is a pleasant 70-year-old female past medical history significant for diabetes mellitus, hypertension, peripheral vascular disease with right car otid stenosis and aortic stenosis. She follows in the office with Dr. Middleton. We have been asked to see in consultation for heart failure and elevated troponins. Presented to the hospital with symptoms of exertional shortness of breath that has been going on for the previous few months. She also is having frequent episodes of feeling dizzy and lightheaded and frequently falling out of bed. Her history is somewhat different than what she gave to the emergency department. She denies ever having had symptoms of chest discomfort and does not recall that she saw her adjunct instructor yesterday however the emergency department note says she was sent here after seeing Dr. Middleton in the office w ith complaints of chest discomfort. Information mostly is obtained from the medical record and the nursing staff. She had an echocardiogram obtained in the office 11/03/2020 revealed preserved LV systolic function with ejection fraction 55%, grade 2 diastolic dysfunction, severe LVH, severely dilated left atrium, mild aortic regurgitation with moderate aortic stenosis with a mean gradient 18 mmHg with a valve area of 1.27, mild to moderate mitral regurgitation and severe mitral annular calcification. DIAGNOSTICS EKG reveals sinus mechanism with nonspecific abnormalities noted. Telemetry tracings indicate sinus mechanism. Chest xray basilar infiltrates. Laboratory reviewed, WBC 7.9, hemoglobin 13.5, platelets 104, sodium 140, potassium 3.7, creatinine 1.78, glucose on admission was 47, magnesium 1.9, troponin 1.1, 1.22, 1.18, NT proBNP 22,600, TSH 1.27. Current cardiac medications include Lasix 20 mg daily, losartan/hydrochlorothiazide 100/25 mg daily and fluvastatin 80 mg daily. REVIEW OF SYSTEMS At the time of my exam: CONSTITUTIONAL: Denies fever or chills. CARDIOVASCULAR: Denies chest pain, shortness of breath, orthopnea, PND or palpitations. RESPIRATORY: Denies cough. GASTROINTESTINAL: Denies abdominal pain, diarrhea, constipation, nausea or vomiting. MUSCULOSKELETAL: Denies myalgias. NEUROLOGIC: Denies numbness, tingling, headacbe or weakness. ENDOCRINE: Denies fatigue, weight change, polydipsia or polyurina. GENITOURINARY: Denies burning, hematuria or urgency with micturation. HEMATOLOGIC: Denies history of anemia or bleeding. PHYSICAL EXAMINATION Blood pressure 135/86 heart rate 71 afebrile and maintaining oxygen saturation on nasal cannula. CONSTITUTIONAL: No apparent distress. HEENT: Head is normocephalic. Pupils are equal, round. Sclerae anicteric. Mucous membranes of the mouth are moist. No JVD. No carotid bruit. CHEST EXAMINATION: Bibasilar rales, no wheezes or rhonchi. No chest wall tenderness is noted on palpation or with deep breathing. HEART EXAMINATION: Regular rate and rhythm. S1, S2 heard. Systolic ejection murmur at the base, no gallops or rub. ABDOMEN: Soft, nontender. Positive bowel sounds. EXTREMITIES: 2+ peripheral pulses, no lower extremity edema and no calf tenderness. NEUROLOGIC EXAMINATION: Patient is awake, alert and oriented x3. ASSESSMENT Acute on chronic diastolic heart failure Dizziness, unclear etiology at this point Hypertension Diabetes mellitus with hypoglycemia noted on admission Peripheral vascular disease with right carotid stenosis Aortic stenosis PLAN Continue IV heparin infusion. Continue to diurese. Documented accurate intake and output along with daily weights. Hold losartan/hydrochlorothiazide secondary to renal function. Obtain 2-D echocardiogram and Doppler study to assess cardiac structure and function. Decrease aspirin to 81 mg daily. Ongoing telemetry monitoring. Check for orthostatic changes. We will continue to follow and make recommendations accordingly. We will follow up and speak to Dr. Middleton to clarify if she was in the office yesterday. Further recommendations to follow based on clinical course. thank you kindly for this consultation. Nurse Practitioner note has been reviewed, I agree with a documented findings and plan of care. Patient was seen and examined. Past Medical History Past Medical History: Blood Disorder, Diabetes Mellitus, Hypertension, Thyroid Disorder Additional Past Medical History / Comment(s): restless leg syndrome, chronic back pain, diabetic neuropathy, murmer History of Any Multi-Drug Resistant Organisms: None Reported Past Surgical History: Cholecystectomy Additional Past Surgical History / Comment(s): Hernia surgery, bilat elbow surgery foot surgery for plantar fasciitis, bilateral cataract removal and intraocular lens implants. Past Anesthesia/Blood Transfusion Reactions: No Reported Reaction Past Psychological History: No Psychological Hx Reported, Depression Smoking Status: Never smoker Past Alcohol Use History: None Reported Additional Past Alcohol Use History / Comment(s): stopped smoking 30 years. Past Drug Use History: None Reported - Past Family History Mother Family Medical History: Diabetes Mellitus Father Family Medical History: Coronary Artery Disease (CAD), Myocardial Infarction ([place]) Medications and Allergies Home Medications Medication Instructions Recorded Confirmed Type Furosemide [Lasix] 20 mg PO DAILY 05/22/18 12/26/20 History Insulin Aspart Protam & Aspart 20 unit SQ BID 05/22/18 12/26/20 History [NovoLOG MIX 70-30 Flexpen] Levothyroxine Sodium [Synthroid] 150 mcg PO DAILY 05/22/18 12/26/20 History Losartan/Hydrochlorothiazide 1 tab PO DAILY 05/22/18 12/26/20 History [Losartan-Hctz 100-25 mg Tab] Pregabalin [Lyrica] 200 mg PO BID 05/22/18 12/26/20 History Sertraline [Zoloft] 100 mg PO BID 05/22/18 12/26/20 History glipiZIDE [Glucotrol] 10 mg PO AC-BRKFST 05/22/18 12/26/20 History Ascorbic Acid [Vitamin C] 1,000 mg PO DAILY 12/26/20 12/26/20 History Calcium/Magnesium/Zinc 1 tab PO DAILY 12/26/20 12/26/20 History [Aflcfiz-Tbnanbxxz-Rbbu Tablet] Cyanocobalamin (Vitamin B-12) 1,000 mcg PO DAILY 12/26/20 12/26/20 History [Vitamin B-12] Fluvastatin Sodium [Fluvastatin ER] 80 mg PO DAILY 12/26/20 12/26/20 History Glucosam/Abundio-Msm1/C/Buck/Bosw 1 tab PO DAILY 12/26/20 12/26/20 History [Mrausxufeye-Szeerxghqua-CSX Tb] HYDROcodone/APAP 5-325MG [Olin 1 tab PO TID PRN 12/26/20 12/26/20 History 5-325] Ibuprofen [Motrin] 600 mg PO Q8HR PRN 12/26/20 12/26/20 History Loperamide [Imodium] 2 mg PO QID PRN 12/26/20 12/26/20 History Multivit-Min/Iron/Folic/Lutein 1 tab PO DAILY 12/26/20 12/26/20 History [Centrum Silver Women Tablet] Vitamin B Complex 1 cap PO DAILY 12/26/20 12/26/20 History Vitamin E Acetate [Vitamin E] 200 unit PO DAILY 12/26/20 12/26/20 History Allergies Allergy/AdvReac Type Severity Reaction Status Date / Time No Known Allergies Allergy Verified 12/26/20 19:08 Physical Exam Vitals: Vital Signs Temp Pulse Pulse Resp BP BP Pulse Ox 12/27/20 03:27 71 18 135/86 93 L 12/27/20 02:00 78 20 12/27/20 00:00 78 20 105/64 94 L 12/26/20 21:00 97.8 F 57 L 18 118/65 95 12/26/20 19:59 68 18 137/74 96 12/26/20 18:59 53 L 16 108/57 95 12/26/20 18:50 16 88/59 12/26/20 17:30 61 18 104/62 95 12/26/20 16:57 53 L 16 118/40 95 12/26/20 16:43 97 12/26/20 16:42 54 L 18 100/56 87 L 12/26/20 15:42 98.9 F 59 L 20 124/58 95 Intake and Output 12/26/20 12/27/20 12/27/20 22:59 06:59 14:59 Intake Total 138 Output Total 1000 Balance -1000 138 Intake: Intake, IV Titration 138 Amount Heparin Sod,Pork in 0.45% 138 NaCl 25,000 unit In 0.45 % NaCl 1 250ml.bag @ 10. 113 UNITS/KG/HR 10 mls/hr IV .Q24H [facility] Rx#: [id number] Output: Urine 1000 Other: Voiding Method Toilet # Voids 1 1 Weight 98.883 kg 97.1 kg Results 12/26/20 16:38 12/26/20 16:38 Cardiac Enzymes 12/26/20 12/26/20 12/26/20 Range/Units 16:38 16:38 19:26 AST 54 H (14-36) U/L Troponin I 1.100 H* 1.220 H* (0.000-0.034) ng/mL 12/26/20 Range/Units 22:22 AST (14-36) U/L Troponin I 1.190 H* (0.000-0.034) ng/mL Coagulation 12/26/20 12/26/20 12/27/20 Range/Units 16:38 22:22 07:08 PT 11.2 (9.0-12.0) sec APTT 24.0 43.5 H 30.1 H (22.0-30.0) sec Lipids 12/27/20 Range/Units 07:08 Triglycerides 87 (<150) mg/dL Cholesterol 148 (<200) mg/dL HDL Cholesterol 46 (40-60) mg/dL CBC 12/26/20 Range/Units 16:38 WBC 7.9 (3.8-10.6) k/uL RBC 4.67 (3.80-5.40) m/uL Hgb 13.5 (11.4-16.0) gm/dL Hct 42.1 (34.0-46.0) % Plt Count 104 L (150-450) k/uL Comprehensive Metabolic Panel 12/26/20 Range/Units 16:38 Sodium 140 (137-145) mmol/L Potassium 3.7 (3.5-5.1) mmol/L Chloride 102 (98-107) mmol/L Carbon Dioxide 28 (22-30) mmol/L BUN 60 H (7-17) mg/dL Creatinine 1.78 H (0.52-1.04) mg/dL Glucose 47 L* (74-99) mg/dL Calcium 8.6 (8.4-10.2) mg/dL AST 54 H (14-36) U/L ALT 24 (4-34) U/L Alkaline Phosphatase 81 (38-126) U/L Total Protein 7.0 (6.3-8.2) g/dL Albumin 3.6 (3.5-5.0) g/dL Current Medications Generic Name Dose Route Start Last Admin Trade Name Freq PRN Reason Stop Dose Admin Acetaminophen 650 mg 12/26/20 18:55 Acetaminophen Tab 325 Mg Tab PO Q4HR PRN Pain Aspirin 81 mg 12/27/20 09:00 12/27/20 08:52 Aspirin 81 Mg PO 81 mg DAILY JEANA Administration Furosemide 40 mg 12/26/20 21:00 12/27/20 08:52 Furosemide 10 Mg/Ml 4 Ml Vial IV 40 mg BID JEANA Administration Heparin Sodium (Porcine) 0 unit 12/27/20 09:05 12/27/20 09:37 Heparin Sodium,Porcine 5,000 Unit/Ml 1 Ml Vial IV 4,000 unit PER PROTOCOL PRN Administration Low PTT Protocol Heparin Sodium/Sodium Chloride 250 mls @ 10 mls/hr 12/26/20 19:00 12/27/20 08:59 25,000 unit/ Sodium Chloride IV 13.11 units/kg/hr .Q24H JEANA 12.964 mls/hr Titration Protocol 10.113 UNITS/KG/HR Nitroglycerin 0.4 mg 12/26/20 18:55 Nitroglycerin Sl Tabs 0.4 Mg Tab SUBLINGUAL Q5M PRN Chest Pain Pregabalin 200 mg 12/27/20 00:45 12/27/20 08:51 Pregabalin 100 Mg Cap PO 200 mg BID JEANA Administration Sertraline HCl 100 mg 12/27/20 00:45 12/27/20 08:52 Sertraline 100 Mg Tab PO 100 mg BID JEANA Administration Intake and Output 12/26/20 12/27/20 12/27/20 22:59 06:59 14:59 Intake Total 138 Output Total 1000 Balance -1000 138 Intake: Intake, IV Titration 138 Amount Heparin Sod,Pork in 0.45% 138 NaCl 25,000 unit In 0.45 % NaCl 1 250ml.bag @ 10. 113 UNITS/KG/HR 10 mls/hr IV .Q24H [facility] Rx#: [id number] Output: Urine 1000 Other: Voiding Method Toilet # Voids 1 1 Weight 98.883 kg 97.1 kg 12/26/20 16:38 12/26/20 16:38
[2020-12-27 11:02] LABS: Calcium 8.2 mg/dL (8.4-10.2); Magnesium 1.7 mg/dL (1.6-2.3); Potassium 3.7 mmol/L (3.5-5.1); Total Bilirubin 0.8 mg/dL (0.2-1.3); Total Protein 6.1 g/dL (6.3-8.2)
[2020-12-27 11:16] LABS: Anisocytosis Slight; HGB 12.7 gm/dL (11.4-16.0); Hypochromasia Slight; MCHC 31.8 g/dL (31.0-37.0); MCV 91.5 fL (80.0-100.0); Mean Platelet Volume 11.2; RBC 4.38 m/uL (3.80-5.40); RDW 17.1 % (11.5-15.5); WBC 4.2 k/uL (3.8-10.6)
[2020-12-27 11:44] LABS: Platelet Count 65 k/uL (150-450)
[2020-12-27 11:52] LABS: Glucose,Whole Blood 296 mg/dL (75-99)
[2020-12-27] MEDS ORDERED: HYDROcodone/APAP 5-325MG 1 EACH TAB PO PRN (12:11)
[2020-12-27] MEDS: ATORVASTATIN 10 MG TAB PO SCH (13:04)
--- NOTE | 2020-12-27 13:45 | ECHOF ---
Referral Reason:cp and sob MEASUREMENTS -------- HEIGHT: 167.6 cm WEIGHT: 97.1 kg BP: 135/86 RVIDd: 3.2 cm (< 3.3) IVSd: 1.6 cm (0.6 - 1.1) LVIDd: 3.2 cm (3.9 - 5.3) LVPWd: 2.4 cm (0.6 - 1.1) IVSs: 2.2 cm LVIDs: 2.1 cm LVPWs: 2.2 cm LAESV Index (A-L): 43.13 ml/m Ao Diam: 3.0 cm (2.0 - 3.7) AV Cusp: 1.0 cm (1.5 - 2.6) LA Diam: 5.1 cm (2.7 - 3.8) MV EXCURSION: 14.230 mm (> 18.000) MV EF SLOPE: 30 mm/s (70 - 150) EPSS: 1.1 cm MV E Maynor: 1.49 m/s MV DecT: 326 ms MV A Maynor: 1.34 m/s MV E/A Ratio: 1.12 AV maxP.79 mmHg AV meanP.58 mmHg RAP: 5.00 mmHg RVSP: 42.24 mmHg FINDINGS -------- Sinus rhythm. This was a technically adequate study. The left ventricular size is normal. There is moderate concentric left ventricular hypertrophy. O verall left ventricular systolic function is normal with, an EF between 55 - 60 %. The right ventricle is normal in size. LA is severely dilated >40 ml/m2 The right atrium is mildly enlarged. Interatrial and interventricular septum intact. There is moderate aortic valve sclerosis. There is mild aortic regurgitation. There is mild aorti c stenosis present. Peak/mean gradient across the Aortic Valve is 32.79mmHg / 19.58mmHg. Severe mitral annular calcification present. Moderate mitral regurgitation is present. Mild-to-mo derate mitral stenosis , with a MVA of 2.4cm (by PHT) The tricuspid valve appears structurally normal. Moderate tricuspid regurgitation present. There is mild to moderate pulmonary hypertension. The right ventricular systolic pressure, as measured by Doppler, is 42.24mmHg. Trace/mild (physiologic) pulmonic regurgitation. The aortic root size is normal. IVC Not well visulized. There is no pericardial effusion. CONCLUSIONS -------- 1. There is moderate concentric left ventricular hypertrophy. 2. Overall left ventricular systolic function is normal with, an EF between 55 - 60 %. 3. LA is severely dilated >40 ml/m2 4. The right atrium is mildly enlarged. 5. There is moderate aortic valve sclerosis. 6. There is mild aortic regurgitation. 7. There is mild aortic stenosis present. 8. Peak/mean gradient across the Aortic Valve is 32.79mmHg / 19.58mmHg. 9. Severe mitral annular calcification present. 10. Moderate mitral regurgitation is present. 11. Avvy-no-flimgxvl mitral stenosis. 12. , with a MVA of 2.4cm (by PHT) 13. Moderate tricuspid regurgitation present. 14. There is mild to moderate pulmonary hypertension. 15. Trace/mild (physiologic) pulmonic regurgitation. TRUST ADVISOR: Lillie Hendricks RDCS
--- NOTE | 2020-12-27 14:06 | P.HPIM ---
History of Present Illness Patient came in with complaints of shortness of breath usually doesn't use oxygen thousand and 2 distal pulses and patient does have chronic diastolic dysfunction patient previous echo showed normal ejection fraction. Today I start dysfunction she with LVH. Patient also has history of right carotid stenosis along with the. Stenosis and peripheral vascular disease patient was apparently. As per the ER physician note Patient was having chest pain although she denied any chest pain 2 weeks patient was having some lightheadedness. Patient has elevated BNP Roblin elevated JVD although patient doesn't have any pedal edema or chest x-ray showing some nonspecific infiltrate in the perihilar area can be CHF. Was started on Lasix cardiology is following the patient. Review of Systems REVIEW OF SYSTEMS: CONSTITUTIONAL: No fever, no malaise, no fatigue. HEENT: No recent visual problems or hearing problems. Denied any sore throat. CARDIOVASCULAR: No chest pain, orthopnea, PND, no palpitations, no syncope. PULMONARY: no hemoptysis. GASTROINTESTINAL: No diarrhea, no nausea, no vomiting, no abdominal pain. NEUROLOGICAL: No headaches, no weakness, no numbness. HEMATOLOGICAL: Denies any bleeding or petechiae. GENITOURINARY: Denies any burning micturition, frequency, or urgency. MUSCULOSKELETAL/RHEUMATOLOGICAL: Denies any joint pain, swelling, or any muscle pain. ENDOCRINE: Denies any polyuria or polydipsia. The rest of the 14-point review of systems is negative. Past Medical History Past Medical History: Blood Disorder, Diabetes Mellitus, Hypertension, Thyroid Disorder Additional Past Medical History / Comment(s): restless leg syndrome, chronic back pain, diabetic neuropathy, murmer History of Any Multi-Drug Resistant Organisms: None Reported Past Surgical History: Cholecystectomy Additional Past Surgical History / Comment(s): Hernia surgery, bilat elbow surgery foot surgery for plantar fasciitis, bilateral cataract removal and intraocular lens implants. Past Anesthesia/Blood Transfusion Reactions: No Reported Reaction Past Psychological History: No Psychological Hx Reported, Depression Smoking Status: Never smoker Past Alcohol Use History: None Reported Additional Past Alcohol Use History / Comment(s): stopped smoking 30 years. Past Drug Use History: None Reported - Past Family History Mother Family Medical History: Diabetes Mellitus Father Family Medical History: Coronary Artery Disease (CAD), Myocardial Infarction ([place]) Medications and Allergies Home Medications Medication Instructions Recorded Confirmed Type Furosemide [Lasix] 20 mg PO DAILY 05/22/18 12/26/20 History Insulin Aspart Protam & Aspart 20 unit SQ BID 05/22/18 12/26/20 History [NovoLOG MIX 70-30 Flexpen] Levothyroxine Sodium [Synthroid] 150 mcg PO DAILY 05/22/18 12/26/20 History Losartan/Hydrochlorothiazide 1 tab PO DAILY 05/22/18 12/26/20 History [Losartan-Hctz 100-25 mg Tab] Pregabalin [Lyrica] 200 mg PO BID 05/22/18 12/26/20 History Sertraline [Zoloft] 100 mg PO BID 05/22/18 12/26/20 History glipiZIDE [Glucotrol] 10 mg PO AC-BRKFST 05/22/18 12/26/20 History Ascorbic Acid [Vitamin C] 1,000 mg PO DAILY 12/26/20 12/26/20 History Calcium/Magnesium/Zinc 1 tab PO DAILY 12/26/20 12/26/20 History [Qoalrlf-Rdufzbplx-Lpsh Tablet] Cyanocobalamin (Vitamin B-12) 1,000 mcg PO DAILY 12/26/20 12/26/20 History [Vitamin B-12] Fluvastatin Sodium [Fluvastatin ER] 80 mg PO DAILY 12/26/20 12/26/20 History Glucosam/Abundio-Msm1/C/Buck/Bosw 1 tab PO DAILY 12/26/20 12/26/20 History [Xymohopppwi-Ksjfzcbwcey-LUL Tb] HYDROcodone/APAP 5-325MG [Ford 1 tab PO TID PRN 12/26/20 12/26/20 History 5-325] Ibuprofen [Motrin] 600 mg PO Q8HR PRN 12/26/20 12/26/20 History Loperamide [Imodium] 2 mg PO QID PRN 12/26/20 12/26/20 History Multivit-Min/Iron/Folic/Lutein 1 tab PO DAILY 12/26/20 12/26/20 History [Centrum Silver Women Tablet] Vitamin B Complex 1 cap PO DAILY 12/26/20 12/26/20 History Vitamin E Acetate [Vitamin E] 200 unit PO DAILY 12/26/20 12/26/20 History Allergies Allergy/AdvReac Type Severity Reaction Status Date / Time No Known Allergies Allergy Verified 12/26/20 19:08 Physical Exam Vitals: Vital Signs Temp Pulse Pulse Resp BP BP Pulse Ox 12/27/20 12:00 98.2 F 62 18 120/63 96 12/27/20 07:35 18 92 L 12/27/20 07:30 97.6 F 73 18 125/66 82 L 12/27/20 03:27 71 18 135/86 93 L 12/27/20 02:00 78 20 12/27/20 00:00 78 20 105/64 94 L 12/26/20 21:00 97.8 F 57 L 18 118/65 95 12/26/20 19:59 68 18 137/74 96 12/26/20 18:59 53 L 16 108/57 95 12/26/20 18:50 16 88/59 12/26/20 17:30 61 18 104/62 95 12/26/20 16:57 53 L 16 118/40 95 12/26/20 16:43 97 12/26/20 16:42 54 L 18 100/56 87 L 12/26/20 15:42 98.9 F 59 L 20 124/58 95 Intake and Output 12/26/20 12/27/20 12/27/20 22:59 06:59 14:59 Intake Total 668 Output Total 1000 Balance -1000 668 Intake: IV 30 Invasive Line 1 20 Invasive Line 2 10 Intake, IV Titration 138 Amount Heparin Sod,Pork in 0.45% 138 NaCl 25,000 unit In 0.45 % NaCl 1 250ml.bag @ 10. 113 UNITS/KG/HR 10 mls/hr IV .Q24H [facility] Rx#: [id number] Oral 500 Output: Urine 1000 Other: Voiding Method Toilet # Voids 1 1 Weight 98.883 kg 97.1 kg PHYSICAL EXAMINATION: GENERAL: The patient is alert and oriented x3, not in any acute distress. Well developed, well nourished. HEENT: Pupils are round and equally reacting to light. EOMI. No scleral icterus. No conjunctival pallor. Normocephalic, atraumatic. No pharyngeal erythema. No thyromegaly. CARDIOVASCULAR: S1 and S2 present. No rubs, or gallops. Repeat to have JVD systolic murmur in aortic area PULMONARY: Chest is clear to auscultation, no wheezing or crackles. ABDOMEN: Soft, nontender, nondistended, normoactive bowel sounds. No palpable organomegaly. MUSCULOSKELETAL: No joint swelling or deformity. EXTREMITIES: No cyanosis, clubbing, or pedal edema. NEUROLOGICAL: Gross neurological examination did not reveal any focal deficits. SKIN: No rashes. Results CBC & Chem 7: 12/27/20 07:08 12/27/20 07:08 Labs: Abnormal Lab Results - Last 24 Hours (Table) 12/26/20 12/26/20 12/26/20 Range/Units 16:38 16:38 16:38 RDW 17.4 H (11.5-15.5) % Plt Count 104 L (150-450) k/uL APTT (22.0-30.0) sec BUN 60 H (7-17) mg/dL Creatinine 1.78 H (0.52-1.04) mg/dL Glucose 47 L* (74-99) mg/dL POC Glucose (mg/dL) (75-99) mg/dL Calcium (8.4-10.2) mg/dL AST 54 H (14-36) U/L Troponin I 1.100 H* (0.000-0.034) ng/mL Total Protein (6.3-8.2) g/dL Albumin (3.5-5.0) g/dL 12/26/20 12/26/20 12/26/20 Range/Units 17:45 18:56 19:26 RDW (11.5-15.5) % Plt Count (150-450) k/uL APTT (22.0-30.0) sec BUN (7-17) mg/dL Creatinine (0.52-1.04) mg/dL Glucose (74-99) mg/dL POC Glucose (mg/dL) 125 H 137 H (75-99) mg/dL Calcium (8.4-10.2) mg/dL AST (14-36) U/L Troponin I 1.220 H* (0.000-0.034) ng/mL Total Protein (6.3-8.2) g/dL Albumin (3.5-5.0) g/dL 12/26/20 12/26/20 12/27/20 Range/Units 22:22 22:22 07:08 RDW (11.5-15.5) % Plt Count (150-450) k/uL APTT 43.5 H 30.1 H (22.0-30.0) sec BUN (7-17) mg/dL Creatinine (0.52-1.04) mg/dL Glucose (74-99) mg/dL POC Glucose (mg/dL) (75-99) mg/dL Calcium (8.4-10.2) mg/dL AST (14-36) U/L Troponin I 1.190 H* (0.000-0.034) ng/mL Total Protein (6.3-8.2) g/dL Albumin (3.5-5.0) g/dL 12/27/20 12/27/20 12/27/20 Range/Units 07:08 07:08 11:40 RDW 17.1 H (11.5-15.5) % Plt Count 65 L (150-450) k/uL APTT (22.0-30.0) sec BUN 63 H (7-17) mg/dL Creatinine 1.59 H (0.52-1.04) mg/dL Glucose 109 H (74-99) mg/dL POC Glucose (mg/dL) 296 H (75-99) mg/dL Calcium 8.2 L (8.4-10.2) mg/dL AST 55 H (14-36) U/L Troponin I (0.000-0.034) ng/mL Total Protein 6.1 L (6.3-8.2) g/dL Albumin 3.0 L (3.5-5.0) g/dL Thrombosis Risk Factor Assmnt - Choose All That Apply Each Factor Represents 1 point: Heart failure (<1month) Other Risk Factors: Yes Each Risk Factor Represents 2 Points: Age 61-74 years Other congenital or acquired thrombophilia - If yes, enter type in comment: No Thrombosis Risk Factor Assessment Total Risk Factor Score: 3 Thrombosis Risk Factor Assessment Level: Moderate Risk Assessment and Plan Plan: -Acute hypoxic respiratory failure requiring 4 L of oxygen: Secondary to probably can start failure chronic diastolic dysfunction with acute exacerbation along with aortic stenosis contributing to her symptoms. Can use IV Lasix cardiology following the patient is recommending cardiac catheterization once her heart failure was addressed. -Elevated troponins possibly of NSTEMI cannot be ruled out and patient is presently on IV heparin. -Hypertension -Type 2 diabetes mellitus: Patient was hyperglycemic state patient's 7030 dose will be decreased to hold off on oral hypoglycemic agents -Peripheral vascular disease -Right carotid stenosis -Aortic stenosis -Hypothyroidism.
[2020-12-27] MEDS: HEPARIN SOD,PORK IN 0.45% NACL 25,000 UNIT in 0.45% NACL 1 250ML.BAG IV SCH (16:12)
[2020-12-27 16:57] LABS: Glucose,Whole Blood 193 mg/dL (75-99)
[2020-12-27 20:20] LABS: Glucose,Whole Blood 159 mg/dL (75-99)
[2020-12-27] MEDS: INSULN ASP PRT/INSULIN ASPART 100 UNIT/ML 10 ML VIAL SQ SCH (20:45)
[2020-12-28 06:03] LABS: Glucose,Whole Blood 99 mg/dL (75-99)
[2020-12-28] MEDS: LEVOTHYROXINE 75 MCG TAB PO SCH (06:30)
[2020-12-28] MEDS: SERTRALINE 100 MG TAB PO SCH ×2 (08:17→19:53)
[2020-12-28] MEDS: ATORVASTATIN 10 MG TAB PO SCH (08:17)
[2020-12-28] MEDS: FUROSEMIDE 10 MG/ML 4 ML VIAL IV SCH ×2 (08:17→19:52)
[2020-12-28] MEDS: INSULN ASP PRT/INSULIN ASPART 100 UNIT/ML 10 ML VIAL SQ SCH ×2 (08:17→17:37)
[2020-12-28] MEDS: ASPIRIN 81 MG PO SCH (08:17)
[2020-12-28] MEDS: PREGABALIN 100 MG CAP PO SCH ×2 (08:17→19:53)
[2020-12-28 09:17] LABS: Calcium 8.4 mg/dL (8.4-10.2); Potassium 4.1 mmol/L (3.5-5.1)
--- NOTE | 2020-12-28 10:18 | P.PN ---
Subjective HISTORY OF PRESENTING ILLNESS This is a pleasant 70-year-old female past medical history significant for diabetes mellitus, hypertension, peripheral vascular disease with right carotid stenosis and aortic stenosis. She follows in the office with Dr. Middleton. We have been asked to see in consultation for heart failure and elevated troponins. Presented to the hospital with symptoms of exertional shortness of breath that has been going on for the previous few months. She also is having frequent episodes of feeling dizzy and lightheaded and frequently falling out of bed. Her history is somewhat different than what she gave to the emergency department. She denies ever having had symptoms of chest discomfort and does not recall that she saw her information systems manager yesterday however the emergency department note says she was sent here after seeing Dr. Middleton in the office with complaints of chest discomfort. Information mostly is obtained from the medical record and the nursing staff. She had an echocardiogram obtained in the office 11/03/2020 revealed preserved LV systolic function with ejection fraction 55%, grade 2 diastolic dysfunction, severe LVH, severely dilated left atrium, mild aortic regurgitation with moderate aortic stenosis with a mean gradient 18 mmHg with a valve area of 1.27, mild to moderate mitral regurgitation and severe mitral annular calcification. 12/28/2020 Patient is seen and examined sitting up in bed in no acute distress. She states she has been abusing the restroom frequently. Her exertional shortness of breath seems to be improving mildly however not completely resolved. She has had no chest pain, dizziness or palpitations. Orthostatic vital signs were unremarkable. Current blood pressure 129/62 heart rate 72 afebrile maintaining oxygen saturation on nasal cannula. Laboratory data reviewed, sodium 137, potassium 4.1, creatinine 1.28. Currently maintained on aspirin 81 mg daily, atorvastatin 10 mg daily, Lasix 40 mg IV twice a day, PHYSICAL EXAMINATION CONSTITUTIONAL: No apparent distress. HEENT: Head is normocephalic. Pupils are equal, round. Sclerae anicteric. Mucous membranes of the mouth are moist. No JVD. No carotid bruit. CHEST EXAMINATION: Bibasilar rales, no wheezes or rhonchi. No chest wall tenderness is noted on palpation or with deep breathing. HEART EXAMINATION: Regular rate and rhythm. S1, S2 heard. Systolic ejection murmur at the base, no gallops or rub. EXTREMITIES: 2+ peripheral pulses, no lower extremity edema and no calf tenderness. ASSESSMENT Acute on chronic diastolic heart failure Troponin elevation, likely related to heart failure Dizziness, unclear etiology at this point Hypertension Diabetes mellitus with hypoglycemia noted on admission Peripheral vascular disease with right carotid stenosis Aortic stenosis PLAN Discontinue IV heparin infusion. Continue IV diuresis. Initiate lopressor 25 mg BID. Follow renal function and electrolytes in the morning. Further recommendations to follow based on clinical course. Nurse Practitioner note has been reviewed, I agree with a documented findings and plan of care. Patient was seen and examined. Objective - Vital Signs Vital signs: Vital Signs Temp 98.6 F 12/28/20 07:49 Pulse 72 12/28/20 07:59 Resp 18 12/28/20 07:49 BP 129/62 12/28/20 07:59 Pulse Ox 92 L 12/28/20 07:49 Intake & Output 12/27/20 12/28/20 12/28/20 18:59 06:59 18:59 Intake Total 1361.557 40 280 Output Total 2396 Balance 1361.557 -2356 280 Weight 94.7 kg Intake: IV 30 40 20 Invasive Line 1 20 20 10 Invasive Line 2 10 20 10 Intake, IV Titration 231.557 Amount Heparin Sod,Pork in 0.45% 231.557 NaCl 25,000 unit In 0.45 % NaCl 1 250ml.bag @ 10. 113 UNITS/KG/HR 10 mls/hr IV .Q24H [facility] Rx#: [id number] Oral 1100 260 Output: Urine 2396 Other: Voiding Method Toilet # Voids 1 - Labs CBC & Chem 7: 12/27/20 07:08 12/28/20 07:53 Labs: Abnormal Lab Results - Last 24 Hours (Table) 12/27/20 12/27/20 12/27/20 Range/Units 07:08 07:08 11:40 RDW 17.1 H (11.5-15.5) % Plt Count 65 L (150-450) k/uL APTT (22.0-30.0) sec Chloride (98-107) mmol/L Carbon Dioxide (22-30) mmol/L BUN 63 H (7-17) mg/dL Creatinine 1.59 H (0.52-1.04) mg/dL Glucose 109 H (74-99) mg/dL POC Glucose (mg/dL) 296 H (75-99) mg/dL Calcium 8.2 L (8.4-10.2) mg/dL AST 55 H (14-36) U/L Total Protein 6.1 L (6.3-8.2) g/dL Albumin 3.0 L (3.5-5.0) g/dL 12/27/20 12/27/20 12/27/20 Range/Units 15:32 16:54 20:17 RDW (11.5-15.5) % Plt Count (150-450) k/uL APTT 49.9 H (22.0-30.0) sec Chloride (98-107) mmol/L Carbon Dioxide (22-30) mmol/L BUN (7-17) mg/dL Creatinine (0.52-1.04) mg/dL Glucose (74-99) mg/dL POC Glucose (mg/dL) 193 H 159 H (75-99) mg/dL Calcium (8.4-10.2) mg/dL AST (14-36) U/L Total Protein (6.3-8.2) g/dL Albumin (3.5-5.0) g/dL 12/28/20 12/28/20 Range/Units 07:53 07:53 RDW (11.5-15.5) % Plt Count (150-450) k/uL APTT 48.1 H (22.0-30.0) sec Chloride 97 L (98-107) mmol/L Carbon Dioxide 31 H (22-30) mmol/L BUN 64 H (7-17) mg/dL Creatinine 1.28 H (0.52-1.04) mg/dL Glucose 139 H (74-99) mg/dL POC Glucose (mg/dL) (75-99) mg/dL Calcium (8.4-10.2) mg/dL AST (14-36) U/L Total Protein (6.3-8.2) g/dL Albumin (3.5-5.0) g/dL
[2020-12-28 11:34] LABS: Glucose,Whole Blood 118 mg/dL (75-99)
--- NOTE | 2020-12-28 13:20 | P.PN ---
Subjective Progress Note Date: 12/28/20 Patient came in with complaints of shortness of breath usually doesn't use oxygen thousand and 2 distal pulses and patient does have chronic diastolic dysfunction patient previous echo showed normal ejection fraction. Today I start dysfunction she with LVH. Patient also has history of right carotid steno sis along with the. Stenosis and peripheral vascular disease patient was apparently. As per the ER physician note Patient was having chest pain although she denied any chest pain 2 weeks patient was having some lightheadedness. Patient has elevated BNP Roblin elevated JVD although patient doesn't have any pedal edema or chest x-ray showing some nonspecific infiltrate in the perihilar area can be CHF. Was started on Lasix cardiology is following the patient. 12/28/2020 Patient seen in follow-up, she is off of oxygen currently in room air saturating above 90%. Denies chest pain, palpitation or shortness of breath at rest. Reports she is feeling better today. Orthostatics were negative. Hemodynamically stable. Continues IV Lasix 40 twice daily. REVIEW OF SYSTEMS: CONSTITUTIONAL: No fever, no malaise, no fatigue. CARDIOVASCULAR: No chest pain, orthopnea, PND, no palpitations, no syncope. PULMONARY: no hemoptysis. GASTROINTESTINAL: no nausea, vomiting, no abdominal pain. GENITOURINARY: Denies any burning micturition, frequency, or urgency. MUSCULOSKELETAL/RHEUMATOLOGICAL: Denies any joint pain, swelling, or any muscle pain. Objective - Vital Signs Vital signs: Vital Signs Temp 98.6 F 12/28/20 07:49 Pulse 72 12/28/20 07:59 Resp 18 12/28/20 07:49 BP 129/62 12/28/20 07:59 Pulse Ox 92 L 12/28/20 07:49 Intake & Output 12/27/20 12/28/20 12/28/20 18:59 06:59 18:59 Intake Total 1361.557 40 280 Output Total 2396 Balance 1361.557 -2356 280 Weight 94.7 kg Intake: IV 30 40 20 Invasive Line 1 20 20 10 Invasive Line 2 10 20 10 Intake, IV Titration 231.557 Amount Heparin Sod,Pork in 0.45% 231.557 NaCl 25,000 unit In 0.45 % NaCl 1 250ml.bag @ 10. 113 UNITS/KG/HR 10 mls/hr IV .Q24H [facility] Rx#: [id number] Oral 1100 260 Output: Urine 2396 Other: Voiding Method Toilet Toilet # Voids 1 - Exam PHYSICAL EXAMINATION: GENERAL: The patient is alert and oriented x3, not in any acute distress. Well developed, well nourished. HEENT: Pupils are round and equally reacting to light. EOMI. No scleral icterus. No conjunctival pallor. Normocephalic, atraumatic. No pharyngeal erythema. No thyromegaly. CARDIOVASCULAR: S1 and S2 present. No rubs, or gallops. Repeat to have JVD systolic murmur in aortic area PULMONARY: Chest is clear to auscultation, no wheezing or crackles. ABDOMEN: Soft, nontender, nondistended, normoactive bowel sounds. No palpable organomegaly. MUSCULOSKELETAL: No joint swelling or deformity. EXTREMITIES: No cyanosis, clubbing, or pedal edema. NEUROLOGICAL: Gross neurological examination did not reveal any focal deficits. SKIN: No rashes. - Labs CBC & Chem 7: 12/27/20 07:08 12/28/20 07:53 Labs: Abnormal Lab Results - Last 24 Hours (Table) 12/27/20 12/27/20 12/27/20 Range/Units 15:32 16:54 20:17 APTT 49.9 H (22.0-30.0) sec Chloride (98-107) mmol/L Carbon Dioxide (22-30) mmol/L BUN (7-17) mg/dL Creatinine (0.52-1.04) mg/dL Glucose (74-99) mg/dL POC Glucose (mg/dL) 193 H 159 H (75-99) mg/dL 12/28/20 12/28/20 12/28/20 Range/Units 07:53 07:53 11:29 APTT 48.1 H (22.0-30.0) sec Chloride 97 L (98-107) mmol/L Carbon Dioxide 31 H (22-30) mmol/L BUN 64 H (7-17) mg/dL Creatinine 1.28 H (0.52-1.04) mg/dL Glucose 139 H (74-99) mg/dL POC Glucose (mg/dL) 118 H (75-99) mg/dL Assessment and Plan Assessment: -Acute hypoxic respiratory failure requiring 4 L of oxygen: Is secondary to acute exacerbation of CHF with diastolic dysfunction, and aortic stenosis. Improved, currently on room air. Continues diuresis with IV Lasix 40 twice daily. -Elevated troponin: Probably due to acute CHF exacerbation. Cardiology following, heparin has been discontinued. -Type 2 diabetes mellitus: Decrease prandial Humalog to 13 units with meals. -Right carotid stenosis -Aortic stenosis -Hypothyroidism.
[2020-12-28 17:06] LABS: Glucose,Whole Blood 156 mg/dL (75-99)
[2020-12-28 20:06] LABS: Glucose,Whole Blood 142 mg/dL (75-99)
[2020-12-29 06:23] LABS: Glucose,Whole Blood 124 mg/dL (75-99)
[2020-12-29] MEDS: LEVOTHYROXINE 75 MCG TAB PO SCH (06:25)
[2020-12-29 08:04] LABS: Calcium 8.8 mg/dL (8.4-10.2); Potassium 4.4 mmol/L (3.5-5.1)
[2020-12-29] MEDS: ATORVASTATIN 10 MG TAB PO SCH (08:32)
[2020-12-29] MEDS: PREGABALIN 100 MG CAP PO SCH ×2 (08:32→19:40)
[2020-12-29] MEDS: ASPIRIN 81 MG PO SCH (08:34)
[2020-12-29] MEDS: SERTRALINE 100 MG TAB PO SCH ×2 (08:34→19:40)
[2020-12-29] MEDS: FUROSEMIDE 10 MG/ML 4 ML VIAL IV SCH (08:35)
[2020-12-29] MEDS ORDERED: ALPRAZolam 0.25 MG TAB PO PRN (09:41)
[2020-12-29] MEDS ORDERED: SODIUM CHLORIDE 0.9% 1,000 ML in EMPTY BAG 1 BAG IV ONE (09:41)
[2020-12-29] MEDS ORDERED: ALPRAZolam 0.5 MG TAB PO PRN (09:41)
[2020-12-29] MEDS ORDERED: ASPIRIN 81 MG PO SCH (09:45)
[2020-12-29] MEDS ORDERED: ASPIRIN 81 MG PO ONE (09:46)
[2020-12-29] MEDS ORDERED: IV FLUID CONTINUATION 950 ML IV ONE (10:44)
[2020-12-29] MEDS ORDERED: LIDOCAINE 1% INJ 10MG/ML (20 ML MDV) ONE (10:57)
[2020-12-29] MEDS ORDERED: VERAPAMIL 2.5 MG/ML 2 ML AMP ONE (10:57)
[2020-12-29] MEDS ORDERED: MIDAZOLAM 2 MG/2 ML VIAL IV ONE (11:14)
[2020-12-29] MEDS ORDERED: fentaNYL (PF) 50 MCG/ML 2 ML AMP ONE (11:15)
[2020-12-29] MEDS ORDERED: LIDOCAINE 1% INJ 10MG/ML (20 ML MDV) SQ ONE (11:16)
[2020-12-29] MEDS ORDERED: fentaNYL (PF) 50 MCG/ML 2 ML AMP IV ONE (11:16)
[2020-12-29] MEDS ORDERED: HEPARIN SODIUM 1,000 UN/ML (10ML VL) ONE (11:24)
[2020-12-29] MEDS ORDERED: VERAPAMIL SYRINGE (5 MG/10 ML) INTRAARTER ONE (11:24)
[2020-12-29] MEDS ORDERED: IOPAMIDOL-370 125ML BTL INJ ONE (11:40)
[2020-12-29 12:13] LABS: Glucose,Whole Blood 146 mg/dL (75-99)
[2020-12-29] MEDS: INSULN ASP PRT/INSULIN ASPART 100 UNIT/ML 10 ML VIAL SQ SCH ×2 (15:27→17:38)
[2020-12-29 16:44] LABS: Glucose,Whole Blood 256 mg/dL (75-99)
--- NOTE | 2020-12-29 19:24 | P.CARDCATH ---
Description of Procedure: PROCEDURES PERFORMED: Left heart catheterization, bilateral coronary angiography INDICATION: NSTEMI HISTORY: Patient is a pleasant 70-year-old female with history of hypertension, hyperlipidemia, aortic stenosis and heart failure who presents for episodes of weakness mainly of her left leg feeling like her left leg is giving out as well as shortness breath and lower extremity edema. She was found to be in diastolic heart failure and placed on diuretics with improvement in her shortness breath. She was however found to have non-STEMI with mildly elevated troponins and therefore heart catheterization was recommended to rule out significant CAD. CONSENT:I have discussed the risks, benefits and alternative therapies for the above-mentioned procedure and for both sedation/analgesia as well as necessary blood product administration, if indicated, as they pertain to this patient. The patient has indicated understanding and acceptance of the risks and procedures discussed. PROCEDURE: After the risks, benefits and alternatives of the above mentioned procedure explained in detail with the patient, informed consent was obtained. Patient was taken to the catheterization lab and prepped and draped in usual fashion. 1% lidocaine was used to anesthetize the right radial artery. A 6- [place] sheath was placed in the right radial artery using modified Seldinger technique. Left coronary angiography was performed with a 5-[place]andan JL 3.5 catheter and right coronary angiography was performed with a 6-[place] AR2 catheter in various views, there was mild amount of dampening of the RCA however with further adjustment, no further dampening was noted. The 5-[place] FR 5 catheter was inadvertently inserted into the left ventricle and pressure measurements were obtained. Pullback was performed with a 20mmHg peak to peak gradient. The right radial sheath was removed and a TR band was placed with hemostasis achieved. The patient tolerated the procedure well. Patient was transported back to the post catheterization holding area in stable condition. Conscious Sedation: Patient was monitored under the direct supervision of vision of myself for conscious sedation using Versed and fentanyl for a total duration of 24 minutes HEMODYNAMICS: Ao: 124/78 LV: 137/2, LVEDP 11mmHg, 20mmHg peak to peak gradient SELECTIVE CORONARY ARTERIOGRAPHY: LEFT MAIN: The left main is a large caliber, short vessel which bifurcates into the LAD and circumflex. There is no significant stenosis. LEFT ANTERIOR DESCENDING CORONARY ARTERY: LAD is a large caliber vessel which wraps around to the apex. There are mild luminal irregularities. LEFT CIRCUMFLEX CORONARY ARTERY: Left circumflex is a moderate to large caliber vessel. There is a mid to distal circumflex 40% stenosis after a moderate caliber OM1. RIGHT CORONARY ARTERY: The right coronary artery is a large caliber vessel which gives off a PDA and PLV branch and is the dominant vessel. There is ostial 40- 50% RCA stenosis. FINAL IMPRESSION: 1. Mild to moderate CAD as described above including circumflex 40% and ostial RCA 40-50% stenosis however no significant obstructive disease noted. 2. Peak to peak aortic valve gradient of 20mmHg consistent with mild to moderate aortic stenosis. PLAN: 1. Aggressive risk factor modification per most recent ACC/AHA guidelines. 2. Would treat medically. If patient has recurrent symptoms of angina may consider iFR or functional stress to evaluate for ischemia however RCA disease does no appear obstructive at this time.
[2020-12-29 20:28] LABS: Glucose,Whole Blood 216 mg/dL (75-99)
[2020-12-30 03:08] VITALS: RESP 18
[2020-12-30] MEDS: LEVOTHYROXINE 75 MCG TAB PO SCH (06:11)
[2020-12-30] MEDS ORDERED: HEPARIN SODIUM,PORCINE 2,500 UNIT in SODIUM CHLORIDE 0.9% 250 ML IRRIGATION PRN (07:00)
[2020-12-30] MEDS ORDERED: HEPARIN SODIUM,PORCINE 10,000 UNIT in SODIUM CHLORIDE 0.9% 1,000 ML IRRIGATION PRN (07:00)
[2020-12-30 07:44] LABS: Calcium 8.6 mg/dL (8.4-10.2); Potassium 4.6 mmol/L (3.5-5.1)
[2020-12-30] MEDS: ATORVASTATIN 10 MG TAB PO SCH (07:59)
[2020-12-30] MEDS: SERTRALINE 100 MG TAB PO SCH (07:59)
[2020-12-30] MEDS: ASPIRIN 81 MG PO SCH (07:59)
[2020-12-30] MEDS: PREGABALIN 100 MG CAP PO SCH (07:59)
[2020-12-30] MEDS: INSULN ASP PRT/INSULIN ASPART 100 UNIT/ML 10 ML VIAL SQ SCH (07:59)
--- NOTE | 2020-12-30 08:41 | P.PN ---
Subjective Progress Note Date: 12/29/20 Patient came in with complaints of shortness of breath usually doesn't use oxygen thousand and 2 distal pulses and patient does have chronic diastolic dysfunction patient previous echo showed normal ejection fraction. Today I start dysfunction she with LVH. Patient also has history of right carotid sten osis along with the. Stenosis and peripheral vascular disease patient was apparently. As per the ER physician note Patient was having chest pain although she denied any chest pain 2 weeks patient was having some lightheadedness. Patient has elevated BNP elevated JVD although patient doesn't have any pedal edema or chest x-ray showing some nonspecific infiltrate in the perihilar area can be CHF. Was started on Lasix cardiology is following the patient. 12/28/2020 Patient seen in follow-up, she is off of oxygen currently in room air saturating above 90%. Denies chest pain, palpitation or shortness of breath at rest. Reports she is feeling better today. Orthostatics were negative. Hemo dynamically stable. Continues IV Lasix 40 twice daily. 12/29/2020 Patient is seen and evaluated and follow-up and continues to be monitored closely. Cardiology following closely and patient is undergoing cardiac catheterization at this time. Patient is currently maintained on IV Lasix and will be transitioned oral Lasix. Patient continues to be dyspneic with exertion requiring oxygen and discussed with nursing staff about weaning FiO2 as tolerated. BUN and creatinine slightly elevated at 65 and 1.36 and will repeat labs. Continue to monitor blood sugars closely and treat accordingly with current medications. REVIEW OF SYSTEMS: CONSTITUTIONAL: No fever, no malaise, no fatigue. CARDIOVASCULAR: No chest pain, orthopnea, PND, no palpitations, no syncope. PULMONARY: no hemoptysis. GASTROINTESTINAL: no nausea, vomiting, no abdominal pain. GENITOURINARY: Denies any burning micturition, frequency, or urgency. MUSCULOSKELETAL/RHEUMATOLOGICAL: Denies any joint pain, swelling, or any muscle pain. Active Medications Acetaminophen (Acetaminophen Tab 325 Mg Tab) 650 mg PO Q4HR PRN PRN Reason: Pain Hydrocodone Bitart/Acetaminophen (Hydrocodone/Apap 5-325mg 1 Each Tab) 1 each PO TID PRN PRN Reason: Pain Alprazolam (Alprazolam 0.25 Mg Tab) 0.25 mg PO Q6HR PRN PRN Reason: Mild Anxiety Alprazolam (Alprazolam 0.5 Mg Tab) 0.5 mg PO Q6HR PRN PRN Reason: Moderate Anxiety Aspirin (Aspirin 81 Mg) 81 mg PO DAILY [facility] Last Admin: 12/30/20 07:59 Dose: 81 mg Documented by: Atorvastatin Calcium (Atorvastatin 10 Mg Tab) 10 mg PO DAILY [facility] Last Admin: 12/30/20 07:59 Dose: 10 mg Documented by: Furosemide (Furosemide 40 Mg Tab) 40 mg PO DAILY [facility] Last Admin: 12/30/20 07:59 Dose: 40 mg Documented by: Heparin Sodium (Porcine) 10, (000 unit/ Sodium Chloride) 1,001 mls @ 999 mls/hr IRRIGATION ONCE PRN PRN Reason: INTRA-OP Stop: 12/30/20 23:00 Heparin Sodium (Porcine) 2,500 (unit/ Sodium Chloride) 250.5 mls @ 250 mls/hr IRRIGATION ONCE PRN PRN Reason: INTRA-OP Stop: 12/30/20 23:00 Insulin Aspart (Insuln Asp Prt/Insulin Aspart 100 Unit/Ml 10 Ml Vial) 13 unit SQ AC-BID [facility] Last Admin: 12/30/20 07:59 Dose: 13 unit Documented by: Levothyroxine Sodium (Levothyroxine 75 Mcg Tab) 150 mcg PO DAILY@0630 [facility] Last Admin: 12/30/20 06:11 Dose: 150 mcg Documented by: Nitroglycerin (Nitroglycerin Sl Tabs 0.4 Mg Tab) 0.4 mg SUBLINGUAL Q5M PRN PRN Reason: Chest Pain Pregabalin (Pregabalin 100 Mg Cap) 200 mg PO BID [facility] Last Admin: 12/30/20 07:59 Dose: 200 mg Documented by: Sertraline HCl (Sertraline 100 Mg Tab) 100 mg PO BID [facility] Last Admin: 12/30/20 07:59 Dose: 100 mg Documented by: Objective - Vital Signs Vital signs: Vital Signs Temp 97.8 F 12/29/20 08:00 Pulse 60 12/29/20 08:00 Resp 16 12/29/20 08:00 BP 139/64 12/29/20 08:00 Pulse Ox 93 L 12/29/20 08:00 Intake & Output 12/28/20 12/29/20 12/29/20 18:59 06:59 18:59 Intake Total 1340 10 150 Output Total 1900 Balance 1340 -1890 150 Weight 92.6 kg Intake: IV 30 10 150 Invasive Line 1 10 Invasive Line 2 20 10 0 Intake, IV Titration 250 Amount Heparin Sod,Pork in 0.45% 250 NaCl 25,000 unit In 0.45 % NaCl 1 250ml.bag @ 10. 113 UNITS/KG/HR 10 mls/hr IV .Q24H [facility] Rx#: [id number] Oral 1060 Output: Urine 1900 Other: Voiding Method Toilet Toilet Toilet - Exam GENERAL: The patient is alert and oriented x3, not in any acute distress. Well developed, well nourished. There is 97.8F, pulse is 60, respirations are 16, blood pressure is 139/64, oxygen saturation is 93% on 4 L. HEENT: Pupils are round and equally reacting to light. EOMI. No scleral icterus. No conjunctival pallor. Normocephalic, atraumatic. No pharyngeal erythema. No thyromegaly. CARDIOVASCULAR: S1 and S2 muffled. Patient does have JVD, systolic murmur in aortic area PULMONARY: Diminished breath sounds with some scattered rhonchi noted. ABDOMEN: Soft, nontender, nondistended, normoactive bowel sounds. No palpable organomegaly. MUSCULOSKELETAL: No joint swelling or deformity. EXTREMITIES: No cyanosis, clubbing, or pedal edema. NEUROLOGICAL: Gross neurological examination did not reveal any focal deficits. SKIN: No rashes. - Labs CBC & Chem 7: 12/27/20 07:08 12/30/20 07:13 Labs: Abnormal Lab Results - Last 24 Hours (Table) 12/28/20 12/28/20 12/29/20 Range/Units 17:00 20:05 06:21 Chloride (98-107) mmol/L Carbon Dioxide (22-30) mmol/L BUN (7-17) mg/dL Creatinine (0.52-1.04) mg/dL Glucose (74-99) mg/dL POC Glucose (mg/dL) 156 H 142 H 124 H (75-99) mg/dL 12/29/20 Range/Units 07:21 Chloride 92 L (98-107) mmol/L Carbon Dioxide 38 H (22-30) mmol/L BUN 65 H (7-17) mg/dL Creatinine 1.36 H (0.52-1.04) mg/dL Glucose 118 H (74-99) mg/dL POC Glucose (mg/dL) (75-99) mg/dL Assessment and Plan Assessment: -Acute hypoxic respiratory failure requiring oxygen: Is secondary to acute exacerbation of CHF with diastolic dysfunction, and aortic stenosis -Elevated troponin: Possibly due to acute CHF exacerbation -Type 2 diabetes mellitus -History of hypertension -History of restless leg syndrome -Diabetic neuropathy -Chronic back pain -Right carotid stenosis -Aortic stenosis -Hypothyroidism Recommendations and discussion: Recommend continue current medications, management, and symptomatic treatment. She is maintained on IV Lasix and will continue at this time. Patient continues to be short of breath and dyspnea with exertion and is currently maintained on 4 L of oxygen. Patient is being closely monitored by cardiology and scheduled to undergo cardiac catheterization today. Instructed to increase activity as tolerated and wean FiO2 as tolerated as well. Cost with nursing staff. Creatinine slightly elevated at 1.36 today and will repeat a.m. labs. Due to multiple complex medical issues, prognosis is guarded. Mentation is to follow.
[2020-12-30] MEDS ORDERED: FUROSEMIDE 40 MG TAB PO SCH (09:00)
[2020-12-30 09:58] VITALS: TEMP 97.7
[2020-12-30 11:56] LABS: Glucose,Whole Blood 90 mg/dL (75-99)
[2020-12-30 12:47] VITALS: BP 179/75; PULSE 63
--- NOTE | 2020-12-30 16:43 | P.PN ---
Subjective HISTORY OF PRESENTING ILLNESS This is a pleasant 70-year-old female past medical history significant for diabetes mellitus, hypertension, peripheral vascular disease with right carotid stenosis and aortic stenosis. She follows in the office with Dr. Middleton. We have been asked to see in consultation for heart failure and elevated troponins. Presented to the hospital with symptoms of exertional shortness of breath that has been going on for the previous few months. She also is having frequent episodes of feeling dizzy and lightheaded and frequently falling out of bed. Her history is somewhat different than what she gave to the emergency department. She denies ever having had symptoms of chest discomfort and does not recall that she saw her straightening press operator yesterday however the emergency department note says she was sent here after seeing Dr. Middleton in the office with complaints of chest discomfort. Information mostly is obtained from the medical record and the nursing staff. She had an echocardiogram obtained in the office 11/03/2020 revealed preserved LV systolic function with ejection fraction 55%, grade 2 diastolic dysfunction, severe LVH, severely dilated left atrium, mild aortic regurgitation with moderate aortic stenosis with a mean gradient 18 mmHg with a valve area of 1.27, mild to moderate mitral regurgitation and severe mitral annular calcification. 12/30/2020 Patient is seen and examined sitting up in bed in no acute distress. SOB continues to improve. LHC performed yesterday with mild to moderate 20mmHg peak to peak gradient for and mild to moderate disease including 40-50% RCA stenosis. Denies any chest pain. Wants to go home. PHYSICAL EXAMINATION CONSTITUTIONAL: No apparent distress. HEENT: Head is normocephalic. Pupils are equal, round. Sclerae anicteric. Mucous membranes of the mouth are moist. No JVD. No carotid bruit. CHEST EXAMINATION: Bibasilar rales, no wheezes or rhonchi. No chest wall tenderness is noted on palpation or with deep breathing. HEART EXAMINATION: Regular rate and rhythm. S1, S2 heard. Systolic ejection murmur at the base, no gallops or rub. EXTREMITIES: 2+ peripheral pulses, no lower extremity edema and no calf tenderness. ASSESSMENT Acute on chronic diastolic heart failure Troponin elevation, likely related to heart failure, [facility] with mild to moderate disease Dizziness, unclear etiology at this point Hypertension Diabetes mellitus with hypoglycemia noted on admission Peripheral vascular disease with right carotid stenosis Aortic stenosis PLAN Patient appears stable for DC home. Spoke with friend previously who is concerned with LLE weakness. Suspect neuropathy or joint issue. He is worried about PAD however patient with 3+ DP and PT pulses and do not suspect PAD. OK for DC home. Objective - Vital Signs Vital signs: Vital Signs Temp 97.7 F 12/30/20 08:00 Pulse 63 12/30/20 12:00 Resp 18 12/30/20 12:00 BP 179/75 12/30/20 12:00 Pulse Ox 96 12/30/20 12:00 Intake & Output 12/29/20 12/30/20 12/30/20 18:59 06:59 18:59 Intake Total 630 480 Balance 630 480 Weight 91.8 kg Intake: IV 150 Invasive Line 2 0 Oral 480 480 Other: Voiding Method Toilet Toilet Toilet # Voids 1 - Labs CBC & Chem 7: 12/27/20 07:08 12/30/20 07:13 Labs: Abnormal Lab Results - Last 24 Hours (Table) 12/29/20 12/29/20 12/30/20 Range/Units 16:42 20:26 07:13 Carbon Dioxide 36 H (22-30) mmol/L BUN 57 H (7-17) mg/dL Creatinine 1.26 H (0.52-1.04) mg/dL Glucose 107 H (74-99) mg/dL POC Glucose (mg/dL) 256 H 216 H (75-99) mg/dL
--- NOTE | 2020-12-31 09:28 | P.DS ---
Providers Date of admission: 12/26/20 18:56 Expected date of discharge: 12/30/20 Attending physician: Jeancarlos Vaughan MD Consults: 12/26/20 18:56 Consult Physician Urgent Consulting Provider: Jose Carlos Middleton Consult Reason/Comments: nstemi, chf Do you want consulting provider notified?: Yes Primary care physician: German Villalobos Hospital Course: Final Diagnosis -Acute hypoxic respiratory failure requiring oxygen secondary to acute exacerbation of CHF with diastolic dysfunction, and aortic stenosis -Elevated troponin: Possibly due to acute CHF exacerbation -Type 2 diabetes mellitus -History of hypertension -History of restless leg syndrome -Diabetic neuropathy -Chronic back pain -Right carotid stenosis -Aortic stenosis -Hypothyroidism Discharge disposition Patient is being discharged in a stable condition with guarded prognosis to home. Patient will follow-up with Dr. German Villalobos in the outpatient setting upon discharge. Patient also instructed to follow-up with cardiology Dr. Middleton as scheduled. Total time taken is greater than 35 minutes. Hospital course This is a 70-year-old female who was recently admitted with shortness of breath along with CHF diastolic dysfunction and was being closely monitored. Patient is being closely monitored and evaluated by cardiology and undergoing a cardiac catheterization. Catheterization showed mild to moderate CAD including circumflex 40% and ostial RCA 40-50% stenosis however no significant obstruction disease noted. Cardiology recommending medical management and close follow-up in the outpatient setting. Patient also had a Doppler done of the lower extremities during hospitalization. Currently no reports of chest pain, shortness of breath, or palpitations. Patient is afebrile. No reports of nausea or vomiting and patient is tolerating diet. She is requesting to go home. Patient will be discharged home today. Guarded prognosis. On exam vital signs are stable. Cardio S1, S2 are muffled. Respiratory system shows diminished breath sounds at the bases with no wheezing or rhonchi noted. Abdomen is soft and nontender. Nervous system shows no focal deficits. Please refer to medication reconciliation sheet for a list of medications. Patient Condition at Discharge: Fair Plan - Discharge Summary Discharge Rx Participant: No New Discharge Prescriptions: New Aspirin 81 mg PO DAILY 30 Days #30 chew Acetaminophen Tab [Tylenol] 650 mg PO Q4HR PRN tab PRN Reason: Pain Continue Sertraline [Zoloft] 100 mg PO BID Pregabalin [Lyrica] 200 mg PO BID Levothyroxine Sodium [Synthroid] 150 mcg PO DAILY HYDROcodone/APAP 5-325MG [[place] 5-325] 1 tab PO TID PRN PRN Reason: Pain Glucosam/Abundio-Msm1/C/Buck/Bosw [Oxufntktzyw-Zjwviahdvyz-VTO Tb] 1 tab PO DAILY Vitamin E Acetate [Vitamin E] 200 unit PO DAILY Vitamin B Complex 1 cap PO DAILY Multivit-Min/Iron/Folic/Lutein [Centrum Silver Women Tablet] 1 tab PO DAILY Calcium/Magnesium/Zinc [Ycqlquv-Etakvklzy-Wfrt Tablet] 1 tab PO DAILY Ascorbic Acid [Vitamin C] 1,000 mg PO DAILY Cyanocobalamin (Vitamin B-12) [Vitamin B-12] 1,000 mcg PO DAILY Loperamide [Imodium] 2 mg PO QID PRN PRN Reason: Diarrhea Fluvastatin Sodium [Fluvastatin ER] 80 mg PO DAILY Changed Furosemide [Lasix] 40 mg PO DAILY 30 Days #60 tab Insulin Aspart Protam & Aspart [NovoLOG MIX 70-30 Flexpen] 13 unit SQ BID #0 Discontinued glipiZIDE [Glucotrol] 10 mg PO AC-BRKFST Losartan/Hydrochlorothiazide [Losartan-Hctz 100-25 mg Tab] 1 tab PO DAILY Ibuprofen [Motrin] 600 mg PO Q8HR PRN PRN Reason: Pain Discharge Medication List Levothyroxine Sodium [Synthroid] 150 mcg PO DAILY 05/22/18 [History] Pregabalin [Lyrica] 200 mg PO BID 05/22/18 [History] Sertraline [Zoloft] 100 mg PO BID 05/22/18 [History] Ascorbic Acid [Vitamin C] 1,000 mg PO DAILY 12/26/20 [History] Calcium/Magnesium/Zinc [Hvtgnbl-Ijyzjiknp-Qsfz Tablet] 1 tab PO DAILY 12/26/20 [History] Cyanocobalamin (Vitamin B-12) [Vitamin B-12] 1,000 mcg PO DAILY 12/26/20 [History] Fluvastatin Sodium [Fluvastatin ER] 80 mg PO DAILY 12/26/20 [History] Glucosam/Abundio-Msm1/C/Buck/Bosw [Rwdglpiopyo-Uhferbvuayz-TSP Tb] 1 tab PO DAILY 12/26/20 [History] HYDROcodone/APAP 5-325MG [[place]is 5-325] 1 tab PO TID PRN 12/26/20 [History] Loperamide [Imodium] 2 mg PO QID PRN 12/26/20 [History] Multivit-Min/Iron/Folic/Lutein [Centrum Silver Women Tablet] 1 tab PO DAILY 12/26/20 [History] Vitamin B Complex 1 cap PO DAILY 12/26/20 [History] Vitamin E Acetate [Vitamin E] 200 unit PO DAILY 12/26/20 [History] Acetaminophen Tab [Tylenol] 650 mg PO Q4HR PRN tab 12/30/20 [Rx] Aspirin 81 mg PO DAILY 30 Days #30 chew 12/30/20 [Rx] Furosemide [Lasix] 40 mg PO DAILY 30 Days #60 tab 12/30/20 [Rx] Insulin Aspart Protam & Aspart [NovoLOG MIX 70-30 Flexpen] 13 unit SQ BID #0 12/30/20 [Rx] Follow up Appointment(s)/Referral(s): Jose Carlos Middleton DO [STAFF PHYSICIAN] - 01/06/21 9:45 am (on ) German Villalobos DO [Primary Care Provider] - 1-2 days (call office to make appt) Patient Instructions/Handouts: Heart Failure (DC), Restless Legs Syndrome (ED), Edema (DC), After Radial Heart Catheterization (GEN) Activity/Diet/Wound Care/Special Instructions: Activity Limited until follow-up Continue current heart healthy diabetic diet Continue to monitor blood sugars and keep a diary for primary care follow-up Follow-up primary care provider upon discharge Follow-up cardiology outpatient Discharge Disposition: HOME SELF-CARE
--- NOTE | 2020-12-31 10:41 | P.ARTDOP ---
Arterial Doppler LOWER EXTREMITY ARTERIAL DOPPLER: DATE OF SERVICE: 12/30/2020 Reason for study: Restless leg syndrome. Doppler waveforms: Multiphasic bilaterally throughout. Pulse volume recording: []. Pressure gradients: None. Ankle-brachial indices: Greater than 1 bilaterally. Toe brachial indices: 0.71 on the right, 0.84 on the left Impression: Normal study.
== END 2020-12-30 16:36 | disposition home or self-care (01) | DRG 286 ==
LOC: EC 15:33 → 3SCARD 18:56
PROVIDERS: ADMIT Internal Medicine; ATTEND Internal Medicine
PROC: B2111ZZ Fluoroscopy of Multiple Coronary Arteries using Low Osmolar Contrast (ICD-10-PCS; 2020-12-29)
PROC: B2151ZZ Fluoroscopy of Left Heart using Low Osmolar Contrast (ICD-10-PCS; 2020-12-29)
PROC: 4A023N7 Measurement of Cardiac Sampling and Pressure, Left Heart, Percutaneous Approach (ICD-10-PCS; principal; 2020-12-29 16:40)
DX: I11.0 Hypertensive heart disease with heart failure (principal); J96.01 Acute respiratory failure with hypoxia; I50.33 Acute on chronic diastolic (congestive) heart failure; I65.21 Occlusion and stenosis of right carotid artery; E11.51 Type 2 diabetes mellitus with diabetic peripheral angiopathy without gangrene; Z79.4 Long term (current) use of insulin; E11.649 Type 2 diabetes mellitus with hypoglycemia without coma; E11.65 Type 2 diabetes mellitus with hyperglycemia; E03.9 Hypothyroidism, unspecified; E11.40 Type 2 diabetes mellitus with diabetic neuropathy, unspecified; G25.81 Restless legs syndrome; G89.29 Other chronic pain; M54.9 Dorsalgia, unspecified; R42 Dizziness and giddiness; E78.5 Hyperlipidemia, unspecified; F32.9 Major depressive disorder, single episode, unspecified
CPT/HCPCS: 36415; 71046; 80048; 80053; 80061; 83735; 83880; 84443; 84484; 85025; 85027; 85610; 85730; 87635; 93005; 93306; 93458; 93922

== ENCOUNTER → 2021-07-13 | Outpatient (CLI) | payer MEDICARE ==
--- NOTE | 2021-07-14 07:50 | CT ---
EXAMINATION TYPE: CT chest wo con DATE OF EXAM: 07/13/2021 COMPARISON: Chest x-ray June 24, 2021 and older studies. HISTORY: dyspnea upon exertion CT DLP: 911.10 mGycm. Automated Exposure Control for Dose Reduction was Utilized. TECHNIQUE: CT scan of the thorax is performed without IV contrast. High-resolution protocol with 1 m m sequences obtained at 10 mm intervals in supine and prone technique. FINDINGS: LUNGS: There is peripheral reticulation and intralobular septal thickening seen bilaterally with chun tional areas of groundglass opacity involving upper and lower lungs. No distinct honeycombing or end- stage cystic change identified. No pleural effusion or pneumothorax seen. MEDIASTINUM: Lack of IV contrast and technique are both noted to limit evaluation for mediastinal and especially hilar adenopathy. There are prominent and suspect is slightly enlarged lymph nodes in the prevascular, AP window, paratracheal, and subcarinal levels. There is cardiomegaly with dense calcif ication at level of the mitral valve. There is right coronary artery calcification and/or stent. No p ericardial effusion. Enlarged main pulmonary artery at 3.7 cm axial image 11 consistent with underlyi ng pulmonary artery hypertension. OTHER: Anterior fusion plate in the cervical spine noted on localizer. There is eventration ventral w all possible hernia correction surgery upper abdomen. Liver has lobulated contour consistent with cir rhosis. Visualized spleen is prominent and suspected enlarged. IMPRESSION: 1. Moderate to advanced diffuse bilateral parenchymal fibrotic changes appear interval progression fr om 2010 x-ray. No other x-rays before this year available for comparison. Areas of groundglass opacit y favor alveolar edema on background cardiomegaly, areas of acute infiltrate not entirely excluded bu t unlikely in asymptomatic outpatient. Underlying pulmonary artery hypertension noted. Nonspecific th oracic adenopathy. 2. Note is made of cirrhosis and suspected underlying portal venous hypertension as splenomegaly is s till present. Clinical correlation and follow-up advised.
== END | disposition home or self-care (01) ==
LOC: RADCTMAIN 17:59
PROVIDERS: ATTEND Internal Medicine Critical Care Medicine
DX: R91.8 Other nonspecific abnormal finding of lung field (principal); I27.20 Pulmonary hypertension, unspecified; J84.10 Pulmonary fibrosis, unspecified
CPT/HCPCS: 71250

== ENCOUNTER 2021-07-22 19:07 | Emergency (ER) | payer MEDICARE ==
[2021-07-22 19:17] VITALS: RESP 18; TEMP 98.1
[2021-07-22] MEDS ORDERED: HYDROmorphone 1 MG/ML 1 ML SYRINGE IM STA (19:38)
--- NOTE | 2021-07-22 19:41 | ED ---
Fall HPI - General Chief Complaint: Fall Stated Complaint: Fall Time Seen by Provider: 07/22/21 19:24 Source: patient, EMS Mode of arrival: EMS - History of Present Illness Initial Comments: 71-year-old female who presents by EMS with complaints of right arm pain after a fall just approximate 4 hours prior to arrival. She states she was reaching for something she fell forward onto her abdomen and chest she states her arm was underneath her she complains of mid to proximal right humerus pain she denies any head neck or back pain any other injury. No loss of consciousness no blurry vision no other current complaints or modifying factors MD Complaint: fall - Related Data Home Medications Medication Instructions Recorded Confirmed Levothyroxine Sodium [Synthroid] 150 mcg PO DAILY 05/22/18 12/26/20 Pregabalin [Lyrica] 200 mg PO BID 05/22/18 12/26/20 Sertraline [Zoloft] 100 mg PO BID 05/22/18 12/26/20 Ascorbic Acid [Vitamin C] 1,000 mg PO DAILY 12/26/20 12/26/20 Calcium/Magnesium/Zinc 1 tab PO DAILY 12/26/20 12/26/20 [Uqgywbi-Mgcswtdzw-Cskc Tablet] Cyanocobalamin (Vitamin B-12) 1,000 mcg PO DAILY 12/26/20 12/26/20 [Vitamin B-12] Fluvastatin Sodium [Fluvastatin ER] 80 mg PO DAILY 12/26/20 12/26/20 Glucosam/Abundio-Msm1/C/Buck/Bosw 1 tab PO DAILY 12/26/20 12/26/20 [Sgwsxkhrcly-Euylrpjrmbq-UQF Tb] HYDROcodone/APAP 5-325MG [[place] 1 tab PO TID PRN 12/26/20 12/26/20 5-325] Loperamide [Imodium] 2 mg PO QID PRN 12/26/20 12/26/20 Multivit-Min/Iron/Folic/Lutein 1 tab PO DAILY 12/26/20 12/26/20 [Centrum Silver Women Tablet] Vitamin B Complex 1 cap PO DAILY 12/26/20 12/26/20 Vitamin E Acetate [Vitamin E] 200 unit PO DAILY 12/26/20 12/26/20 Previous Rx's Medication Instructions Recorded Acetaminophen Tab [Tylenol] 650 mg PO Q4HR PRN tab 12/30/20 Aspirin 81 mg PO DAILY 30 Days #30 chew 12/30/20 Furosemide [Lasix] 40 mg PO DAILY 30 Days #60 tab 12/30/20 Insulin Aspart Protam & Aspart 13 unit SQ BID #0 12/30/20 [NovoLOG MIX 70-30 Flexpen] HYDROcodone/APAP 7.5-325MG [[place] 1 tab PO Q6HR PRN 3 Days #12 tab 07/22/21 7.5-325] Allergies Allergy/AdvReac Type Severity Reaction Status Date / Time No Known Allergies Allergy Verified 07/22/21 19:17 Review of Systems ROS Statement: Those systems with pertinent positive or pertinent negative responses have been documented in the HPI. ROS Other: All systems not noted in ROS Statement are negative. Past Medical History Past Medical History: Blood Disorder, Heart Failure, Diabetes Mellitus, Hypertension, Thyroid Disorder Additional Past Medical History / Comment(s): restless leg syndrome, chronic back pain, diabetic neuropathy, murmer History of Any Multi-Drug Resistant Organisms: None Reported Past Surgical History: Cholecystectomy Additional Past Surgical History / Comment(s): Hernia surgery, bilat elbow surgery foot surgery for plantar fasciitis, bilateral cataract removal and intraocular lens implants. Past Anesthesia/Blood Transfusion Reactions: No Reported Reaction Past Psychological History: No Psychological Hx Reported, Depression Smoking Status: Never smoker Past Alcohol Use History: None Reported Past Drug Use History: None Reported - Past Family History Mother Family Medical History: Diabetes Mellitus Father Family Medical History: Coronary Artery Disease (CAD), Myocardial Infarction ([place]) General Exam - General Exam Comments Initial Comments: This is a well-developed well-nourished awake alert oriented history female with a Rudy Coma Scale of 15 Limitations: no limitations General appearance: alert, anxious Head exam: Present: atraumatic, normocephalic, normal inspection Eye exam: Present: normal appearance, PERRL, EOMI. Absent: scleral icterus, conjunctival injection, periorbital swelling ENT exam: Present: normal exam, mucous membranes moist Neck exam: Present: normal inspection. Absent: tenderness, meningismus, lymphadenopathy Respiratory exam: Present: normal lung sounds bilaterally. Absent: respiratory distress, wheezes, rales, rhonchi, stridor Cardiovascular Exam: Present: regular rate, normal rhythm, normal heart sounds. Absent: systolic murmur, diastolic murmur, rubs, gallop, clicks GI/Abdominal exam: Present: soft, normal bowel sounds. Absent: distended, tenderness, guarding, rebound, rigid Extremities exam: Present: tenderness, normal capillary refill, other (Tennis palpation of the proximal right humerus limited range of motion secondary to pain no pain distal to this available forearm or hand or wrist pain.). Absent: full ROM, pedal edema, joint swelling, calf tenderness Back exam: Present: normal inspection Neurological exam: Present: alert, oriented X3, CN II-XII intact Psychiatric exam: Present: normal affect, normal mood Skin exam: Present: warm, dry, intact, normal color. Absent: rash Course Vital Signs 07/22/21 07/22/21 19:13 19:29 Temperature 98.1 F Pulse Rate 50 L Respiratory 18 Rate Blood Pressure 111/79 O2 Sat by Pulse 89 L 92 L Oximetry Medical Decision Making - Medical Decision Making I did discuss [employer] the patient and family member were present patient will be placed in a sling oral pain medication discharged with orthopedic follow-up. Reexamination no neurovascular deficits. - Radiology Data Radiology results: report reviewed (Imaging reviewed evidence of a proximal humerus fracture. Ago. Report), image reviewed Disposition Clinical Impression: Fall, Closed fracture of right proximal humerus Disposition: HOME SELF-CARE Condition: Good Instructions (If sedation given, give patient instructions): Fall Prevention for Older Adults (ED), Proximal Humerus Fracture (ED) Prescriptions: HYDROcodone/APAP 7.5-325MG [[place] 7.5-325] 1 tab PO Q6HR PRN 3 Days #12 tab PRN Reason: Pain Is patient prescribed a controlled substance at d/c from ED?: No When asked, does pt state using other controlled substances?: No If prescribed controlled substance>3 days was MAPS reviewed?: Prescribed <3 Days If opioid is for acute pain is fill amount 7 days or less?: Yes If Rx opioid, was Start Talking consent form obtained?: Yes Referrals: Josefa Douglas MD [Primary Care Provider] - 1-2 days
--- NOTE | 2021-07-22 20:05 | XR ---
EXAMINATION TYPE: XR humerus RT DATE OF EXAM: 07/22/2021 CLINICAL HISTORY: Trauma TECHNIQUE: Two views of the right humerus are obtained. COMPARISON: None. FINDINGS: The comminuted, displaced fracture through the humeral neck with extension through the grea ter tuberosity. The right shoulder and elbow joints appear within normal limits. IMPRESSION: Mildly comminuted fracture through the humeral neck with extension through the greater tu berosity. There is anterior and medial displacement of the distal fracture fragment.
[2021-07-22] MEDS ORDERED: HYDROcodone/APAP 7.5-325MG 1 EACH TAB PO ONE (20:16)
[2021-07-22 20:29] VITALS: BP 108/47; PULSE 55
== END 2021-07-22 20:28 | disposition home or self-care (01) ==
LOC: EC 19:07
DX: S42.201A Unspecified fracture of upper end of right humerus, initial encounter for closed fracture (principal); E11.40 Type 2 diabetes mellitus with diabetic neuropathy, unspecified; I11.0 Hypertensive heart disease with heart failure; I50.9 Heart failure, unspecified; F32.9 Major depressive disorder, single episode, unspecified; Z79.82 Long term (current) use of aspirin; Z79.4 Long term (current) use of insulin; Z79.890 Hormone replacement therapy; Z79.899 Other long term (current) drug therapy; Z83.3 Family history of diabetes mellitus; Z82.49 Family history of ischemic heart disease and other diseases of the circulatory system; W19.XXXA Unspecified fall, initial encounter
CPT/HCPCS: 73060; 96372; 99284; J1170